=== PATIENT | male | born 1975 ===

== ENCOUNTER 2018-04-24 06:56 | Inpatient (IN) | payer MEDICAID ==
[2018-04-24 07:03] VITALS: O2SAT 100
--- NOTE | 2018-04-24 07:31 | C.PDOC ---
History Of Present Illness 42 year old male presents to the emergency department with complaints of depression and suicidal thoughts for the past three days. He admits to using heroin and cocaine, but states that he has no thoughts of harming anyone nor is he hearing voices. Time Seen by Provider: 04/24/18 07:12 Chief Complaint (Nursing): Psychiatric Evaluation History Per: Patient History/Exam Limitations: no limitations Onset/Duration Of Symptoms: Days (3) Current Symptoms Are (Timing): Still Present Suicide/Self Injury Attempted (Context): None Modifying Factor(s): Cocaine, Other (heroin) Associated Symptoms: Depression, Suicidal Thoughts. denies: Suicidal Plan, Other (homicidal ideation) Past Medical History Reviewed: Historical Data, Nursing Documentation, Vital Signs Vital Signs: Last Vital Signs Temp 98.3 F 04/24/18 07:00 Pulse 66 04/24/18 07:00 Resp 20 04/24/18 07:00 BP 123/85 04/24/18 07:00 Pulse Ox 100 04/24/18 08:35 - Medical History PMH: Anxiety, Bipolar Disorder, Depression Surgical History: No Surg Hx Family History: States: No Known Family Hx - Social History Hx Alcohol Use: No Hx Substance Use: Yes - Immunization History Hx Tetanus Toxoid Vaccination: Yes Hx Influenza Vaccination: No Hx Pneumococcal Vaccination: No Review Of Systems Except As Marked, All Systems Reviewed And Found Negative. Psych: Positive for: Depression, Suicidal ideation Physical Exam - Physical Exam Appears: Non-toxic, No Acute Distress Skin: Warm, Dry Head: Atraumatic, Normacephalic Eye(s): bilateral: Normal Inspection Nose: Normal Neck: Normal, Supple Chest: Symmetrical Cardiovascular: Rhythm Regular, No Murmur Respiratory: Normal Breath Sounds, No Rales, No Rhonchi, No Wheezing Gastrointestinal/Abdominal: Normal Exam, Soft, No Tenderness, No Guarding, No Rebound Extremity: Normal ROM Neurological/Psych: Oriented x3, Normal Speech, Normal Cognition ED Course And Treatment - Laboratory Results Result Diagrams: 04/24/18 07:27 04/24/18 07:27 O2 Sat by Pulse Oximetry: 100 (RA) Pulse Ox Interpretation: Normal Medical Decision Making Medical Decision Making: Assessment: Depression and Suicidal Ideation Plan: Alcohol Serum CMP Drug Screen Urinalysis 0835 - patient is medically cleared for crisis Disposition Discussed With : Nona Engel Doctor Will See Patient In The: Hospital Counseled Patient/Family Regarding: Studies Performed, Diagnosis - Disposition Disposition: HOSPITALIZED Disposition Time: 08:59 Condition: FAIR Forms: [facility] (Romansh) - Clinical Impression Clinical Impression: Manic bipolar I disorder, Opiate abuse, continuous - Scribe Statement The provider has reviewed the documentation as recorded by the Scribe (Josué Chavez) Provider Attestation: All medical record entries made by the Scribe were at my direction and personally dictated by me. I have reviewed the chart and agree that the record accurately reflects my personal performance of the history, physical exam, medical decision making, and the department course for this patient. I have also personally directed, reviewed, and agree with the discharge instructions and disposition.
[2018-04-24 07:36] LABS: BASO # 0.1 K/uL (0.0-0.2); BASO % 0.9 % (0.0-2.0); EOS % 0.3 % (0.0-4.0); HEMOGLOBIN 10.7 g/dL (12.0-18.0); LYMPH # 1.1 K/uL (1.0-4.3); LYMPH % 13.3 % (20.0-40.0); MEAN CELL VOLUME 91.3 fL (80.0-94.0); MEAN CORPUSCULAR HEMOGLOBIN 31.6 pg (27.0-31.0); MEAN CORPUSCULAR HGB CONC 34.6 g/dL (33.0-37.0); MONO # 0.5 K/uL (0.0-0.8); MONO % 6.5 % (0.0-10.0); NEUT # 6.4 K/uL (1.8-7.0); RBC 3.38 Mil/uL (4.40-5.90); RED CELL DISTRIBUTION WIDTH 14.2 % (11.5-14.5); WHITE BLOOD COUNT 8.1 K/uL (4.8-10.8)
[2018-04-24 07:50] LABS: ALB/GLOB RATIO 1.3 (1.0-2.1); ALBUMIN 3.9 g/dL (3.5-5.0); ALT/SGPT 56 U/L (21-72); AST/SGOT 56 U/L (17-59); BLOOD UREA NITROGEN 12 mg/dL (9-20); GFR NON-AFRICAN AMERICAN > 60
[2018-04-24 08:01] LABS: BENZODIAZEPINES, UR NEGATIVE (NEGATIVE); PHENCYCLIDINE, UR NEGATIVE (NEGATIVE)
[2018-04-24 08:04] LABS: SQUAMOUS EPITHIAL 1 /hpf (0-5); URINE AMORPHOUS SEDIMENT RARE /ul (<OCC); URINE BILIRUBIN NEGATIVE (NEGATIVE); URINE BLOOD NEGATIVE (NEGATIVE); URINE CLARITY Hazy (Clear); URINE COLOR Yellow (YELLOW); URINE GLUCOSE (UA) NORMAL (Normal); URINE LEUKOCYTE ESTERASE NEG Leu/uL (Negative); URINE PROTEIN NEGATIVE (NEGATIVE)
[2018-04-24 08:28] LABS: BARBITURATES, UR POSITIVE (NEGATIVE); OPIATES, UR POSITIVE (NEGATIVE)
[2018-04-24] MEDS ORDERED: Aluminum Hydroxide/Magnesium Hydroxide Susp (30 mL) PO PRN (10:01)
--- NOTE | 2018-04-24 10:12 | PCM.PSYCH ---
Initial Psychiatric Evaluation - Initial Psychiatric Evaluation Type of Admission: Voluntary Legal Status: Capacity Chief Complaint (in patient's own words): "I want to kill myself" History of Present Illness and Precipitating Events: Mr. Joshi is a 42-year-old male who is homeless and split from his . Patient brought in by ambulance to ER earlier because of symptoms of depression and wanting to kill himself. Patient injected himself with 12 bags of heroin and 30 dollars worth of cocaine yesterday in an attempt to kill himself. pt has a hx of 3 suicide attempts since the age of 38. pt has been shooting up cocain and heroin for the past 20 years. He describes his symptoms as a cycle of one week of depressed mood followed by one day of insomnia and burst of energy. Past Psych: He had gone to a psychiatrist 4 years ago and was diagnosed with Bipolar disorder, depression, and anxiety. He was given medication but cannot remember the name. states he did feel better while on the medication. pt stopped taking his medication soon after. pt smokes 1/2 PPD, denies marijuana or other drug use Family Hx: Father has a hx of bipolar disorder Past Medical Hx: Bipolar disorder, anxiety, depression Current Medications: Active Medications Generic Name Dose Route Start Last Admin Trade Name Freq PRN Reason Stop Dose Admin Al Hydrox/Mg Hydrox/Simethicone 30 ml 04/24/18 10:01 Maalox 30 Ml PO TID PRN Indigestion / Heartburn Clonidine HCl 0.1 mg 04/24/18 10:01 Catapres PO Q8 PRN COWS Score More or Equal to 5 Hydroxyzine HCl 25 mg 04/24/18 10:06 Atarax PO Q6 PRN Agitation Loperamide HCl 2 mg 04/24/18 10:01 Imodium PO Q8 PRN Diarrhea Methadone HCl 20 mg 04/24/18 10:01 Methadone PO 04/24/18 10:02 ONCE ONE Ondansetron HCl 4 mg 04/24/18 10:01 Zofran Tab PO Q8 PRN Nausea/Vomiting Pseudoephedrine HCl 60 mg 04/24/18 10:01 Sudafed Tab PO QID PRN Nasal/Sinus Congestion Trazodone HCl 50 mg 04/24/18 22:00 Desyrel PO HS LE Past Psychiatric History - Past Psychiatric History Previous Treatment History: Inpatient Pertinent Medical Hx (Current Medical&Sleep Prob, Allergies): Allergies Allergy/AdvReac Type Severity Reaction Status Date / Time FISH Allergy Verified 04/24/18 07:04 lactose Allergy Verified 04/24/18 07:04 No Known Home Med 04/24/18 Review of Systems - Review of Systems All systems: reviewed and no additional remarkable complaints except - Psychiatric Psychiatric: Anxiety, Irritability, Mood Swings, Suicidal Ideation Mental Status Examination - Personal Presentation Personal Presentation: Looks stated age - Affect Affect: Constricted, Depressed - Motor Activity Motor Activity: Calm - Reliability in Providing Information Reliability in Providing Information: Fair - Speech Speech: Organized - Mood Mood: Depressed, Anxious - Formal Thought Process Formal Thought Process: No Impairment - Obsessions/Compulsions Obsessions: No Compulsions: No - Cognitive Functions Orientation: Person, Place, Situation, Time Sensorium: Alert Attention/Concentration: Attentive Abstract Thinking: E[place] Estimate of Intelligence: Below average Judgement: Imparied, as evidence by: Poor judgement, Imparied, as evidence by: Lack of insight into illness - Risk Risk: Suicidal, Diminished functioning - Strength & Assets Inventory Strength & Assets Inventory: Intelligence - Limitations Limitations: Living alone DSM 5 DX - DSM 5 DSM 5 Diagnosis: Bipolar disorder mixed severe without psychotic features Opoid use disorder severe Opioid withdrawal Nicotine use disorder, moderate - Recommended/Plan of Treatment Treatment Recommendations and Plan of Treatment: Bipolar disorder mixed severe without psychotic features Opoid use disorder severe Opioid withdrawal Nicotine use disorder, moderate CBT for relapse prevention Attend groups and activities Supportive therapy and psychoeducation Trazadone 50mg PO HS Gbapentin 300 mg PO TID Methadone taper Smoking cessation with [place] Nicotine patch if needed As needed medications All risks, benefits and alternatives of the meds discussed, and the pt agreed and understood. [place] for abstinence Refer to rehab or IOP, and self-help groups
--- NOTE | 2018-04-24 11:16 | PCM.BM ---
<Leila Gallowayn - Last Filed: 04/24/18 11:14> Treatment Plan Problems - Problems identified on initial assessmt Polysubstance abuse Date Initiated: 04/24/18 Time Initiated: 11:14 Assessment reference: NA Status: Active Depression Date Initiated: 04/24/18 Time Initiated: 11:14 Assessment reference: NA Status: Active Suicidal ideation Date Initiated: 04/24/18 Time Initiated: 11:15 Assessment reference: NA Status: Monitor Treatment assets and liabiliti Patient Assests: cooperative, ADL independent, physically healthy, negotiates basic needs, cognitively intact Patient Liabilities: financial problems, poor support system, relationship conflicts, substance abuse - Milieu Protocol Maintain good personal hygiene: daily Encourage regular showers, daily Remind patient to perform daily oral care, daily Assist patient to perform ADL's Maintain personal safety: every shift Educate patient to report safety concerns to staff, every shift Monitor environment for contraband/sharps Medication safety: Monitor for expected outcome, potential side effects: every shift, Assess barriers to learning: every shift, Assess readiness for medication education: every shift <Nona Engel - Last Filed: 04/25/18 10:57> - Diagnosis (1) Bipolar disorder Status: Acute Interventions: 04/25/18 10:57 * Assess/adjust medications daily and /or as needed * See patient on an individual basis 7x/week to assess level of manic behaviors and stability * Discuss risks, benefits, side effects and alternatives of medications * (2) Opiate abuse, continuous Status: Acute Interventions: 04/25/18 10:58 * Assess 7x/week regarding severity of withdrawal * Educate regarding risks, benefits, side effects and alternatives of medications * Use Motivational Interviewing for abstinence * Use CBT for relapse prevention * Medication management for withdrawal symptoms * Encourage medication assisted treatment * <Mandie Santos - Last Filed: 04/25/18 12:53> Family Contact Family involvement: Patient does not wish Family/SO involvement Family contact: Patient declines to allow family contact at present - Goals for Treatment Patient goals for treatment: "I want to go to [facility] rehab program." Discharge/Continuing Care - Education Needs Education Needs: Patient Medication, Patient Diagnosis/Disease Process, Patient Coping Skills, Patient Placement options, Patient Community resources - Discharge Discharge Criteria: Free of Suicidal thoughts, Normal sleep pattern, Ability to care for self, No longer exhibiting s/s of withdrawal, Reduction of target symptoms Discharge to:: Substance Abuse Rehab - Treatment Team Participation Discussed with Family/SO: No Was Patient/Family/SO present at Treatment Team Meeting: Yes
--- NOTE | 2018-04-25 10:57 | PCM.PYCHPN ---
Psychiatric Progress Note - Psychiatric Progress Note Patient seen today, length of contact: 15 min Patient Chief Complaint: "I want to kill myself" Problems Identified/Issues Discussed: Patient seen and evaluated, chart reviewed and discussed with the nurse. Pt reports depressed mood, and reports feelings of hopelessness and helplessness. He remained isolated and withdrawn, and confined to his room. Patient reports of withdrawal symptoms including abdominal cramps, anxiety, headaches and sweating. Patient is compliant with medications and denies any side effects. Symptoms are improving but pt needs more time to stabilize. Support and psychoeducation given. Medication Change: Yes Medical Record Reviewed: Yes Mental Status Examination - Cognitive Function Orientation: Person, Place, Situation, Time Memory: Intact Attention: WNL Concentration: Poor Association: WNL Fund of Knowledge: Poor - Mood Mood: Depressed, Anxious - Affect Affect: Constricted, Depressed - Speech Speech: Soft - Formal Thought Process Formal Thought Process: No Impairment - Suicidal Ideation Suicidal Ideation: No - Homicidal Ideation Homicidal Ideation: No Goal/Treatment Plan - Goal/Treatment Plan Need for Continued Stay: Severe depression anxiety, Severe functional impairment Progress Toward Problem(s) and Goals/Treatment Plan: Bipolar disorder mixed severe without psychotic features Opoid use disorder severe Opioid withdrawal Nicotine use disorder, moderate CBT for relapse prevention Attend groups and activities Supportive therapy and psychoeducation Trazadone 50mg PO HS Gbapentin 300 mg PO TID Methadone taper Smoking cessation with [place] Nicotine patch if needed As needed medications All risks, benefits and alternatives of the meds discussed, and the pt agreed and understood. OR for abstinence Refer to rehab or IOP, and self-help groups - Smoking Cessation Smoking Cessation Initiated: No
[2018-04-25] MEDS: Divalproex 250 mg DR Tab PO SCH (18:08)
[2018-04-26] MEDS: Divalproex 250 mg DR Tab PO SCH ×2 (09:42→17:22)
[2018-04-26] MEDS ORDERED: Pneumococcal 23-Valent Vaccine IM ONE (10:00)
--- NOTE | 2018-04-26 11:10 | PCM.PYCHPN ---
Psychiatric Progress Note - Psychiatric Progress Note Patient seen today, length of contact: 15 min Patient Chief Complaint: "I m feeling little better" Problems Identified/Issues Discussed: Patient seen and evaluated, chart reviewed and discussed with the nurse. As per the staff he is compliant with the meds. Pt reports depressed mood, and reports feelings of hopelessness and helplessness. He remained isolated and withdrawn, and confined to his room. Patient reports of withdrawal symptoms including abdominal cramps, anxiety, headaches and sweating. Patient is compliant with medications and denies any side effects. Symptoms are improving but pt needs more time to stabilize. Support and psychoeducation given. Medication Change: Yes Medical Record Reviewed: Yes Mental Status Examination - Cognitive Function Orientation: Person, Place, Situation, Time Memory: Intact Attention: WNL Concentration: Poor Association: WNL Fund of Knowledge: Poor - Mood Mood: Depressed, Anxious - Affect Affect: Constricted, Depressed - Speech Speech: Soft - Formal Thought Process Formal Thought Process: No Impairment - Suicidal Ideation Suicidal Ideation: No - Homicidal Ideation Homicidal Ideation: No Goal/Treatment Plan - Goal/Treatment Plan Need for Continued Stay: Severe depression anxiety, Severe functional impairment Progress Toward Problem(s) and Goals/Treatment Plan: Bipolar disorder mixed severe without psychotic features Opoid use disorder severe Opioid withdrawal Nicotine use disorder, moderate CBT for relapse prevention Attend groups and activities Supportive therapy and psychoeducation Trazadone 50mg PO HS Gbapentin 300 mg PO TID Methadone taper Smoking cessation with [place] Nicotine patch if needed As needed medications All risks, benefits and alternatives of the meds discussed, and the pt agreed and understood. ID for abstinence Refer to rehab or IOP, and self-help groups
[2018-04-27] MEDS: Divalproex 250 mg DR Tab PO SCH ×2 (09:08→17:43)
--- NOTE | 2018-04-28 01:00 | PCM.PYCHPN ---
Psychiatric Progress Note - Psychiatric Progress Note Patient seen today, length of contact: 15 min Patient Chief Complaint: "I m feeling little better" Problems Identified/Issues Discussed: Patient seen and evaluated, chart reviewed and discussed with the nurse. Today pt reports some improvement in his depressed mood, and reports some improvement in the feelings of hopelessness and helplessness. Patient still reports of withdrawal symptoms including anxiety, headaches and sweating. He remained isolated and withdrawn, and confined to his room. Patient is compliant with medications and denies any side effects. Symptoms are improving but pt needs more time to stabilize. Support and psychoeducation given. Medication Change: Yes Medical Record Reviewed: Yes Mental Status Examination - Cognitive Function Orientation: Person, Place, Situation, Time Memory: Intact Attention: WNL Concentration: Poor Association: WNL Fund of Knowledge: Poor - Mood Mood: Depressed, Anxious - Affect Affect: Constricted, Depressed - Speech Speech: Soft - Formal Thought Process Formal Thought Process: No Impairment - Suicidal Ideation Suicidal Ideation: No - Homicidal Ideation Homicidal Ideation: No Goal/Treatment Plan - Goal/Treatment Plan Need for Continued Stay: Severe depression anxiety, Severe functional impairment Progress Toward Problem(s) and Goals/Treatment Plan: Bipolar disorder mixed severe without psychotic features Opoid use disorder severe Opioid withdrawal Nicotine use disorder, moderate CBT for relapse prevention Attend groups and activities Supportive therapy and psychoeducation Trazadone 50mg PO HS Depakote 250 mg PO BID Gbapentin 300 mg PO TID Methadone taper Smoking cessation with [place] Nicotine patch if needed As needed medications All risks, benefits and alternatives of the meds discussed, and the pt agreed and understood. [place] for abstinence Refer to rehab or IOP, and self-help groups - Smoking Cessation Smoking Cessation Initiated: No
[2018-04-28] MEDS: Divalproex 250 mg DR Tab PO SCH ×2 (09:42→17:00)
--- NOTE | 2018-04-28 16:19 | PCM.PYCHPN ---
Psychiatric Progress Note - Psychiatric Progress Note Patient seen today, length of contact: 15 min Patient Chief Complaint: I'm feeling some anxiety. Can I be discharged on Monday. Problems Identified/Issues Discussed: Patient seen, chart reviewed, case discussed with the staff. Issues related to illness and treatment were discussed with the patient and staff. Reported compliant with treatment with no adverse affects. Tolerating treatment very well. Patient reported feeling better with some anxiety. Needs more time for stabilization. Patient was calm and cooperative. Patient was awake alert oriented 3 with good eye contact. Mood reported as good, affect appropriate. Aftercare discussed with the patient. At the time of evaluation, patient was awake alert oriented 3, had no delusions , no auditory or visual hallucinations. Medical Problems: None reported Diagnostic Results: Reviewed DSM 5 Symptoms Update: Some improvement with treatment. Medication Change: No Medical Record Reviewed: Yes Mental Status Examination - Cognitive Function Orientation: Person, Place, Situation, Time Memory: Intact Attention: WNL Concentration: WNL Association: WNL Fund of Knowledge: WN Decription of patient's judgement and insights: Fair - Mood Mood: Anxious - Affect Affect: Other (Appropriate) - Speech Speech: Soft - Formal Thought Process Formal Thought Process: No Impairment - Suicidal Ideation Suicidal Ideation: No - Homicidal Ideation Homicidal Ideation: No Goal/Treatment Plan - Goal/Treatment Plan Need for Continued Stay: Remain at risks for inpatient hospitalization, Discharge may exacerbated symptoms, Severe functional impairment Progress Toward Problem(s) and Goals/Treatment Plan: Patient education. Supportive therapy. CBT for relapse prevention. [place] for abstinence. Continue treatment as before. Patient will go to [facility] for follow-up care after discharge from the hospital. Estimated Date of D/C: 05/02/18 - Smoking Cessation Smoking Cessation Initiated: No
[2018-04-29 07:02] VITALS: BP 107/75; PULSE 62; RESP 20; TEMP 97.8
[2018-04-29] MEDS: Divalproex 250 mg DR Tab PO SCH (09:09)
--- NOTE | 2018-04-29 12:46 | PCM.PYCHDC ---
Mental Status Examination - Mental Status Examination Orientation: Person Discharge Summary - Discharge Note Consultations:: List each consultation separately and include: 1. Reason for request. 2. Findings. 3. Follow-up Summary of Hospital Course include:: 1. Description of specific treatment plan utilized for patients during their course of treatmen. 2. Summarize the time- course for resolution of acute symptoms and/or regressed behaviors. 3. Describe issues identified and worked on during hospitalization. 4. Describe medication utilized. 5. Describe medical problems identified and treated. 6. Reassessment of suicide risk Summary of Hospital Course: He will go to [facility] - Final Diagnosis (DSM 5) Condition upon Discharge: FAIR Disposition: HOME/ ROUTINE
[2018-04-29] MEDS ORDERED: Divalproex 500 mg DR Tab PO SCH (18:00)
== END 2018-04-29 13:00 | disposition home or self-care (01) | DRG 430 ==
LOC: C.ER 06:56 → C.5E 08:58
PROVIDERS: ADMIT Psychiatry & Neurology Psychiatry; ATTEND Psychiatry & Neurology Psychiatry
PROC: HZ52ZZZ Individual Psychotherapy for Substance Abuse Treatment, Cognitive-Behavioral (ICD-10-PCS; principal; 2018-04-24)
PROC: HZ57ZZZ Individual Psychotherapy for Substance Abuse Treatment, Motivational Enhancement (ICD-10-PCS; 2018-04-24)
PROC: HZ46ZZZ Group Counseling for Substance Abuse Treatment, Psychoeducation (ICD-10-PCS; 2018-04-24)
PROC: GZ56ZZZ Individual Psychotherapy, Supportive (ICD-10-PCS; 2018-04-24)
DX: F31.63 Bipolar disorder, current episode mixed, severe, without psychotic features (principal); F14.90 Cocaine use, unspecified, uncomplicated; F11.23 Opioid dependence with withdrawal; F41.9 Anxiety disorder, unspecified; G47.00 Insomnia, unspecified; R45.851 Suicidal ideations; Z59.0 Homelessness; Z72.0 Tobacco use; R51 Headache

== ENCOUNTER 2018-07-13 12:44 | Inpatient (IN) | payer MEDICAID ==
[2018-07-13 13:32] LABS: BASO # 0.1 K/uL (0.0-0.2); BASO % 0.8 % (0.0-2.0); EOS % 0.2 % (0.0-4.0); HEMOGLOBIN 10.8 g/dL (12.0-18.0); LYMPH # 1.7 K/uL (1.0-4.3); MEAN CELL VOLUME 91.9 fL (80.0-94.0); MEAN CORPUSCULAR HEMOGLOBIN 30.7 pg (27.0-31.0); MEAN CORPUSCULAR HGB CONC 33.4 g/dL (33.0-37.0); MEAN PLATELET VOLUME 8.9 fL (7.2-11.7); MONO # 0.3 K/uL (0.0-0.8); MONO % 3.6 % (0.0-10.0); NEUT # 5.9 K/uL (1.8-7.0); NEUT % 74.4 % (50.0-75.0); NRBC % 0.1 % (0.0-2.0); RBC 3.53 Mil/uL (4.40-5.90); RED CELL DISTRIBUTION WIDTH 14.4 % (11.5-14.5)
[2018-07-13 13:44] LABS: ALB/GLOB RATIO 1.2 (1.0-2.1); ALBUMIN 4.2 g/dL (3.5-5.0); ALT/SGPT 44 U/L (21-72); AST/SGOT 51 U/L (17-59); BLOOD UREA NITROGEN 10 mg/dL (9-20); GFR NON-AFRICAN AMERICAN > 60
[2018-07-13 13:48] LABS: ACETAMINOPHEN < 10.0 ug/mL (10.0-30.0); SALICYLATE < 1.0 [, mg/dL 1]
--- NOTE | 2018-07-13 13:56 | C.PDOC ---
History Of Present Illness 42 year old male presents to the ED for psychiatric evaluation. Patient reports feeling depressed, stating he has not taken his medication for one month. Patient reports suicidal ideation with plan to overdose on pills. He denies chandler icidal ideation or substance abuse at this time. Time Seen by Provider: 07/13/18 13:13 Chief Complaint (Nursing): Psychiatric Evaluation History Per: Patient History/Exam Limitations: no limitations Onset/Duration Of Symptoms: Days Current Symptoms Are (Timing): Still Present Suicide/Self Injury Attempted (Context): None Modifying Factor(s): None Associated Symptoms: Depression, Suicidal Thoughts, Suicidal Plan Involuntary Hold By: None Recent travel outside of the [place]: No Additional History Per: Patient Past Medical History Reviewed: Historical Data, Nursing Documentation, Vital Signs Vital Signs: Last Vital Signs Temp 98.1 F 07/13/18 12:51 Pulse 67 07/13/18 12:51 Resp 18 07/13/18 12:51 BP 138/83 07/13/18 12:51 Pulse Ox 100 07/13/18 12:51 - Medical History PMH: Anxiety, Bipolar Disorder, Depression, Fractures Denies: Diabetes, Hepatitis, HIV, HTN, Seizures, Sexually Transmitted Disease Surgical History: No Surg Hx - [facility] GROUP DIANETICIST FOR SUBSTANCE ABUSE TREATMENT, PSYCHOEDUCATION (04/24/18) INDIV PSYCHOTHERAPY FOR SUBSTANCE ABUSE, COGNITIV BEHAVIORAL (04/24/18) INDIV PSYCHOTHERAPY FOR SUBSTANCE ABUSE, MOTIVATION ENHANCE (04/24/18) INDIVIDUAL PSYCHOTHERAPY, SUPPORTIVE (04/24/18) Family History: States: Unknown Family Hx - Social History Hx Alcohol Use: No Hx Substance Use: Yes - Immunization History Hx Tetanus Toxoid Vaccination: Yes Hx Influenza Vaccination: No Hx Pneumococcal Vaccination: No Review Of Systems Psych: Positive for: Depression, Suicidal ideation (with plan ) Physical Exam - Physical Exam Appears: Non-toxic, No Acute Distress Skin: Normal Color, Warm, Dry Head: Atraumatic, Normacephalic Eye(s): bilateral: Normal Inspection Oral Mucosa: Moist Neck: Supple Chest: Symmetrical, No Deformity Cardiovascular: Rhythm Regular Respiratory: No Accessory Muscle Use Extremity: Normal ROM Neurological/Psych: Oriented x3, Normal Speech, Normal Cognition ED Course And Treatment - Laboratory Results Result Diagrams: 07/13/18 13:26 07/13/18 13:26 O2 Sat by Pulse Oximetry: 100 (on RA) Pulse Ox Interpretation: Normal Medical Decision Making Medical Decision Making: Progress: Bloodwork and urinalysis ordered and reviewed. Patient placed on 1:1 observation. 1613 Patient is medically clear for admission. Disposition - Disposition Disposition: HOSPITALIZED Disposition Time: 16:40 Condition: STABLE - Clinical Impression Clinical Impression: Depression - Scribe Statement The provider has reviewed the documentation as recorded by the Scribe (Milena Martinez) Provider Attestation: All medical record entries made by the Scribe were at my direction and personally dictated by me. I have reviewed the chart and agree that the record accurately reflects my personal performance of the history, physical exam, medical decision making, and the department course for this patient. I have also personally directed, reviewed, and agree with the discharge instructions and disposition. Decision To Admit - Pt Status Changed To: Hospital Disposition Of: Inpatient - Admit Certification Admit to Inpatient:: After my assessment, the patient will require hospitalization for at least two midnights. This is because of the severity of symptoms shown, intensity of services needed, and/or the medical risk in this patient being treated as an outpatient. - InPatient: Physician Admission Certification: I certify that this patient requires 2 or more midnights of care for the following reason:: si needs inpt - . Bed Request Type: Psychiatry Admitting Physician: Yobany Mao Patient Diagnosis: Depression
[2018-07-13 15:02] LABS: SQUAMOUS EPITHIAL < 1 /hpf (0-5); URINE BILIRUBIN NEGATIVE (NEGATIVE); URINE BLOOD NEGATIVE (NEGATIVE); URINE CLARITY Clear (Clear); URINE COLOR Yellow (YELLOW); URINE GLUCOSE (UA) NORMAL (Normal); URINE LEUKOCYTE ESTERASE NEG Leu/uL (Negative); URINE PROTEIN NEGATIVE (NEGATIVE)
[2018-07-13 15:34] LABS: BARBITURATES, UR NEGATIVE (NEGATIVE); BENZODIAZEPINES, UR NEGATIVE (NEGATIVE); PHENCYCLIDINE, UR NEGATIVE (NEGATIVE)
[2018-07-13 15:36] LABS: OPIATES, UR POSITIVE (NEGATIVE)
[2018-07-13] MEDS ORDERED: Aluminum Hydroxide/Magnesium Hydroxide Susp (30 mL) PO PRN (17:27)
--- NOTE | 2018-07-13 17:52 | PCM.BM ---
<Areli Crawford - Last Filed: 07/13/18 17:49> Treatment Plan Problems - Problems identified on initial assessmt Substance Abuse Date Initiated: 07/13/18 Time Initiated: 17:50 Assessment reference: NA Status: Active (Herion, Cocaine, THC) Poor Family Support Date Initiated: 07/13/18 Time Initiated: 17:51 Assessment reference: NA Status: Active Treatment assets and liabiliti Patient Assests: cooperative, ADL independent, physically healthy, negotiates basic needs, cognitively intact Patient Liabilities: live alone, substance abuse (Heroin, Cocaine, THC) - Milieu Protocol Maintain good personal hygiene: daily Encourage regular showers, daily Remind patient to perform daily oral care, daily Assist patient to perform ADL's Conduct patient checks and document Observation sheet: Q15 minutes Maintain personal safety: every shift Educate patient to report safety concerns to staff, every shift Monitor environment for contraband/sharps Medication safety: Monitor for expected outcome, potential side effects: every shift, Assess barriers to learning: every shift, Assess readiness for medication education: every shift <Mandie Santos - Last Filed: 07/16/18 14:59> Family Contact Family involvement: Patient does not wish Family/SO involvement Family contact: Patient declines to allow family contact at present - Goals for Treatment Patient goals for treatment: "I [facility] rehab or [facility] rehab." Discharge/Continuing Care - Education Needs Education Needs: Patient Medication, Patient Diagnosis/Disease Process, Patient Coping Skills, Patient Placement options, Patient Community resources - Discharge Discharge Criteria: Free of Suicidal thoughts, Normal sleep pattern, Ability to care for self, No longer exhibiting s/s of withdrawal, Reduction of target symptoms Discharge to:: Substance Abuse Rehab - Treatment Team Participation Discussed with Family/SO: No Was Patient/Family/SO present at Treatment Team Meeting: Yes
[2018-07-13 18:09] VITALS: O2SAT 100
[2018-07-14 08:51] VITALS: RESP 20
--- NOTE | 2018-07-14 13:05 | PCM.PSYCH ---
Initial Psychiatric Evaluation - Initial Psychiatric Evaluation Type of Admission: Voluntary Legal Status: Capacity Chief Complaint (in patient's own words): "I am depressed, suicidal" History of Present Illness and Precipitating Events: The pt is seen, chart reviewed and case discussed. He is a 42 y/o LM, w 4 children, unemployed. Lives in a group home in [place]. He says he was kicked out of [facility] recently after 1 day b/c he got into an argument with a director. He was on methadone 65 mg (last dose was confirmed as that but 2 days ago) and now he wants to come off and move out. Risks of doing that discussed, especially coming from a relatively high dose. He said he did it before and he should be OK. Of note, he is also using cocaine and MJ. Denies alcohol and xanax, and others Re psych sxs, he feels depressed, suicidal, paranoid but not homicidal and no hallucinations. He contracts for safety and will follow his safety plan. Family Hx: Father has a hx of bipolar disorder Past Medical Hx: Denies Current Medications: Active Medications Generic Name Dose Route Start Last Admin Trade Name Freq PRN Reason Stop Dose Admin Al Hydrox/Mg Hydrox/Simethicone 30 ml 07/13/18 17:27 Maalox 30 Ml PO TID PRN Indigestion / Heartburn Clonidine HCl 0.1 mg 07/13/18 17:27 Catapres PO Q4 PRN COWS Score More or Equal to 5 Hydroxyzine HCl 50 mg 07/13/18 17:27 Atarax PO Q6H PRN Anxiety Ibuprofen 600 mg 07/13/18 17:27 Motrin Tab PO Q6H PRN Pain, moderate (4-7) Loperamide HCl 2 mg 07/13/18 17:27 Imodium PO Q8 PRN Diarrhea Mirtazapine 15 mg 07/14/18 22:00 Remeron PO HS LE Ondansetron HCl 4 mg 07/13/18 17:27 18 21:33 Zofran Tab PO 4 mg Q8 PRN Administration Nausea/Vomiting Trazodone HCl 100 mg 07/13/18 17:27 Desyrel PO HS PRN Insomnia Past Psychiatric History - Past Psychiatric History Pertinent Medical Hx (Current Medical&Sleep Prob, Allergies): Allergies Allergy/AdvReac Type Severity Reaction Status Date / Time FISH Allergy Verified 04/24/18 07:04 lactose Allergy Verified 04/24/18 07:04 Divalproex [Depakote DR] 500 mg PO BID #60 tcp 04/29/18 Gabapentin [Neurontin] 300 mg PO TID #90 cap 04/29/18 traZODone [Desyrel] 100 mg PO HS #30 tab 04/29/18 Review of Systems - Psychiatric Psychiatric: Abnormal Sleep Pattern, Anhedonia, Anxiety, Change in Appetite, Depression, Difficulty Concentrating, Irritability, Paranoia, Suicidal Ideation. absent: Hallucinations, Homicidal Ideation Mental Status Examination - Personal Presentation Personal Presentation: Looks stated age - Affect Affect: Constricted - Motor Activity Motor Activity: Calm - Reliability in Providing Information Reliability in Providing Information: Good - Speech Speech: Organized - Mood Mood: Depressed, Anxious - Formal Thought Process Formal Thought Process: No Impairment - Cognitive Functions Orientation: Person, Place, Situation, Time Sensorium: Alert Attention/Concentration: Easily distracted Abstract Thinking: Adkins Estimate of Intelligence: Average Judgement: Intact, as evidence by: Insight regarding need for hospitalization Memory: Recent intact, as evidence by: Ability to recall events of the day, Remote intact, as evidenced by: Abilit to recall sig. life events - Risk Risk: Withdrawal, Diminished functioning - Strength & Assets Inventory Strength & Assets Inventory: Cooperative - Limitations Limitations: Living alone, Other DSM 5 DX - DSM 5 DSM 5 Diagnosis: Major depressive d/o - recurrent, severe Opioid withdrawal opioid use d/o - severe Cocaine use d/o - severe cannabis use d/o - severe - Recommended/Plan of Treatment Treatment Recommendations and Plan of Treatment: Taper with methadone He understood that it will be faster than what outpatient methadone clinics would do. He also understood the risks associated with it, incl but not limited to withdrawal symptoms. Remeron for depression Gabapentin for augmentation if needed As needed medications All risks, benefits and alternatives of the meds discussed, and the pt agreed and understood. Attend groups and activities Supportive therapy and psychoeducation MN for abstinence CBT for relapse prevention Encourage MAT Refer to rehab or IOP, and self-help groups Teach healthy lifestyle methods, i.e. diet, exercise, meditation Smoking cessation with MN Nicotine patch if needed 34 min Projected ELOS: 7 days Prognosis: good w treatemnt - Smoking Cessation Smoking Cessation Initiated: Yes
[2018-07-15] MEDS ORDERED: Bisacodyl 5mg EC Tab PO SCH (15:00)
[2018-07-15] MEDS ORDERED: Magnesium Hydroxide Susp 30 ml UD PO ONE (20:54)
--- NOTE | 2018-07-15 23:40 | PCM.PYCHPN ---
Psychiatric Progress Note - Psychiatric Progress Note Patient seen today, length of contact: 15 minutes Patient Chief Complaint: I am feeling restless in my legs most of the times especially at night. Problems Identified/Issues Discussed: Patient seen, chart reviewed, case discussed with the staff. Issues related to illness and treatment were discussed with the patient and staff. Reported compliant with treatment with no adverse effects. Tolerating treatment very well. Awake, alert and oriented x 3. Patient reported feeling better with some restless in his legs especially at night, relieved with leg movements. Calm and cooperative with good eye contact. Mood reported as depressed. Affect appropriate. Treatment discussed with the patient. Needs more time for stabilization. Aftercare discussed with the patient. Denied any delusions, auditory or visual hallucinations, suicidal ideations or homicidal ideations at the time of evaluation. Medical Problems: None reported Diagnostic Results: Reviewed DSM 5 Symptoms Update: Some improvement with treatment Medication Change: No Medical Record Reviewed: Yes Mental Status Examination - Cognitive Function Orientation: Person, Place, Situation, Time Memory: Intact Attention: WNL Concentration: WNL Association: WN Fund of Knowledge: [facility] Decription of patient's judgement and insights: Fair - Mood Mood: Depressed (Less than before) - Affect Affect: Other (Appropriate) - Speech Speech: Appropriate - Formal Thought Process Formal Thought Process: No Impairment Psychotic Thoughts and Behaviors: None - Suicidal Ideation Suicidal Ideation: No - Homicidal Ideation Homicidal Ideation: No Goal/Treatment Plan - Goal/Treatment Plan Need for Continued Stay: Remain at risks for inpatient hospitalization, Discharge may exacerbated symptoms, Severe functional impairment Progress Toward Problem(s) and Goals/Treatment Plan: Some improvement with treatment. Patient education. Supportive therapy. Patient appeared anemic as his hemoglobin, RBC and hematocrit are low. Patient may have restless leg syndrome because of apparent deficiency. We'll start Hydrin supplement. Discussed this issue with patient. Patient understood and agreed. We'll start ferrous sulfate 1 tablet daily. Continue rest of the treatment as before. Patient wants to go to [facility] for follow-up care after discharge from the [facility]. Estimated Date of D/C: 07/18/18 - Smoking Cessation Smoking Cessation Initiated: No Reason for not providing: Patient does not smoke cigarettes.
[2018-07-16] MEDS ORDERED: Bisacodyl 5mg EC Tab PO ONE (21:06)
--- NOTE | 2018-07-16 21:22 | PCM.PYCHPN ---
Psychiatric Progress Note - Psychiatric Progress Note Patient seen today, length of contact: 15 minutes Patient Chief Complaint: I still feel constipated. Problems Identified/Issues Discussed: Patient seen, chart reviewed, case discussed with the staff. Issues related to illness and treatment were discussed with the patient and staff. Reported compliant with treatment with no adverse effects. Tolerating treatment very well. Patient reported feeling better except having constipation. Patient is getting treatment for constipation. Awake, alert and oriented x3. Calm and cooperative with good eye contact. Mood reported as less depressed. Affect appropriate. Treatment discussed with the patient. Needs more time for stabilization. Aftercare discussed with the patient. Denied any delusions, auditory or visual hallucinations, suicidal ideations or homicidal ideations at the time of evaluation. Medical Problems: None reported Diagnostic Results: Reviewed DSM 5 Symptoms Update: Some improvement with treatment Medication Change: No Medical Record Reviewed: Yes Mental Status Examination - Cognitive Function Orientation: Person, Place, Situation, Time Memory: Intact Attention: WNL Concentration: WNL Association: WNL Fund of Knowledge: WN Decription of patient's judgement and insights: Fair - Mood Mood: Depressed (Less than before) - Affect Affect: Other (Appropriate) - Speech Speech: Appropriate - Formal Thought Process Formal Thought Process: No Impairment Psychotic Thoughts and Behaviors: None reported - Suicidal Ideation Suicidal Ideation: No - Homicidal Ideation Homicidal Ideation: No Goal/Treatment Plan - Goal/Treatment Plan Need for Continued Stay: Remain at risks for inpatient hospitalization, Discharge may exacerbated symptoms, Severe functional impairment Progress Toward Problem(s) and Goals/Treatment Plan: Some improvement with treatment. Patient/staff education. Supportive therapy. Continue treatment as before. Patient wants to go to [facility] for continuity of treatment after discharge from the hospital for follow-up care. Estimated Date of D/C: 07/18/18 - Smoking Cessation Smoking Cessation Initiated: No
[2018-07-17 08:22] VITALS: TEMP 98.2
[2018-07-17 16:17] VITALS: BP 112/72; PULSE 74
--- NOTE | 2018-07-17 17:37 | PCM.PYCHPN ---
Psychiatric Progress Note - Psychiatric Progress Note Patient seen today, length of contact: 15 minutes Patient Chief Complaint: I am still feeling constipated. Problems Identified/Issues Discussed: Patient seen, chart reviewed, case discussed with the staff. Issues related to illness and treatment were discussed with the patient and staff. Reported compliant with treatment with no adverse effects. Tolerating treatment very well. Patient reported feeling better except having constipation. We will start Colace. Patient agreed. Awake, alert and oriented x3. Calm and cooperative with good eye contact. Mood reported as less depressed. Affect appropriate. Treatment discussed with the patient. Needs more time for stabilization. Aftercare discussed with the patient. Denied any delusions, auditory or visual hallucinations, suicidal ideations or homicidal ideations at the time of evaluation. Medical Problems: None reported Diagnostic Results: Reviewed DSM 5 Symptoms Update: Improving with treatment. Medication Change: Yes (Colace) Medical Record Reviewed: Yes Mental Status Examination - Cognitive Function Orientation: Person, Place, Situation, Time Memory: Intact Attention: WNL Concentration: WNL Association: WNL Fund of Knowledge: [facility] Decription of patient's judgement and insights: Fair - Mood Mood: Depressed (Less than before) - Affect Affect: Other (Appropriate) - Speech Speech: Appropriate - Formal Thought Process Formal Thought Process: No Impairment Psychotic Thoughts and Behaviors: None reported - Suicidal Ideation Suicidal Ideation: No - Homicidal Ideation Homicidal Ideation: No Goal/Treatment Plan - Goal/Treatment Plan Need for Continued Stay: Remain at risks for inpatient hospitalization, Discharge may exacerbated symptoms, Severe functional impairment Progress Toward Problem(s) and Goals/Treatment Plan: Some improvement with treatment. Patient/staff education. Supportive therapy. We will start Colace for constipation. Continue rest of the treatment as before. Patient wants to go to [facility] for continuity of treatment after discharge from the hospital for follow-up care. Estimated Date of D/C: 07/18/18 - Smoking Cessation Smoking Cessation Initiated: No
--- NOTE | 2018-07-18 16:57 | PCM.PYCHDC ---
Mental Status Examination - Mental Status Examination Orientation: Person, Place, Situation, Time Description of patient's judgement and insight: Fair Psychotic Thoughts and Behaviors: None reported Discharge Summary - Discharge Note Consultations:: List each consultation separately and include: 1. Reason for request. 2. Findings. 3. Follow-up Summary of Hospital Course include:: 1. Description of specific treatment plan utilized for patients during their course of treatmen. 2. Summarize the time- course for resolution of acute symptoms and/or regressed behaviors. 3. Describe issues identified and worked on during hospitalization. 4. Describe medication utilized. 5. Describe medical problems identified and treated. 6. Reassessment of suicide risk - Final Diagnosis (DSM 5) Condition upon Discharge: STABLE Disposition: HOME/ ROUTINE Follow-up Treatment Plan: Some improvement with treatment. Patient/staff education. Supportive therapy. We will start Colace for constipation. Continue rest of the treatment as before. Patient wants to go to [facility] for continuity of treatment after discharge from the hospital for follow-up care. Prescriptions/Medication Reconciliation: Ferrous Sulfate [Feosol] 325 mg PO DAILY #30 tab Mirtazapine [Remeron] 30 mg PO HS #30 tab traZODone [Desyrel] 100 mg PO HS PRN #30 tab PRN Reason: Insomnia
== END 2018-07-18 12:15 | disposition home or self-care (01) | DRG 744 ==
LOC: C.ER 12:44 → C.9E 16:12 → C.5E 16:21
PROVIDERS: ADMIT Psychiatry & Neurology Psychiatry; ATTEND Psychiatry & Neurology Psychiatry
DX: F11.23 Opioid dependence with withdrawal (principal); F33.2 Major depressive disorder, recurrent severe without psychotic features; F14.20 Cocaine dependence, uncomplicated; R45.851 Suicidal ideations; K59.00 Constipation, unspecified; D64.9 Anemia, unspecified; F12.20 Cannabis dependence, uncomplicated

== ENCOUNTER 2018-08-12 19:37 | Inpatient (IN) | payer MEDICAID ==
--- NOTE | 2018-08-12 20:42 | C.PDOC ---
History Of Present Illness 42 year old male with PMHx of depression, bipolar disorder, substance abuse presents to the ED for evaluation of feeling depressed. Patient reports he wanted to kill himself yesterday by overdosing with a fentanyl injection. Patient denies HI, hallucinations, CP, SOB, injury, fall, trauma. Time Seen by Provider: 08/12/18 20:04 Chief Complaint (Nursing): Psychiatric Evaluation History Per: Patient History/Exam Limitations: no limitations Onset/Duration Of Symptoms: Days Current Symptoms Are (Timing): Still Present Suicide/Self Injury Attempted (Context): Other (overdose) Modifying Factor(s): Other Associated Symptoms: Depression, Suicidal Thoughts, Suicidal Plan Recent travel outside of the [place]: No Additional History Per: Patient Past Medical History Reviewed: Historical Data, Nursing Documentation, Vital Signs Vital Signs: Last Vital Signs Temp 99.0 F 08/12/18 20:03 Pulse 88 08/12/18 20:03 Resp BP 132/83 08/12/18 20:03 Pulse Ox 96 08/12/18 20:03 - Medical History PMH: Anxiety, Bipolar Disorder, Depression, Fractures Denies: Diabetes, Hepatitis, HIV, HTN, Chronic Kidney Disease, Seizures, Sexually Transmitted Disease Surgical History: No Surg Hx - [facility] Procedures GROUP P[facility] FOR SUBSTANCE ABUSE TREATMENT, PSYCHOEDUCATION (04/24/18) INDIV PSYCHOTHERAPY FOR SUBSTANCE ABUSE, COGNITIV BEHAVIORAL (04/24/18) INDIV PSYCHOTHERAPY FOR SUBSTANCE ABUSE, MOTIVATION ENHANCE (04/24/18) INDIVIDUAL PSYCHOTHERAPY, SUPPORTIVE (04/24/18) Family History: States: Unknown Family Hx - Social History Hx Alcohol Use: No Hx Substance Use: Yes - Immunization History Hx Tetanus Toxoid Vaccination: Yes Hx Influenza Vaccination: No Hx Pneumococcal Vaccination: No Review Of Systems Constitutional: Negative for: Fever, Chills Cardiovascular: Negative for: Chest Pain Respiratory: Negative for: Shortness of Breath Gastrointestinal: Negative for: Nausea, Vomiting, Abdominal Pain Skin: Negative for: Rash Psych: Positive for: Depression, Suicidal ideation Physical Exam - Physical Exam Appears: Non-toxic, No Acute Distress Skin: Normal Color, Warm, Dry Head: Atraumatic, Normacephalic Eye(s): bilateral: Normal Inspection Oral Mucosa: Moist Neck: Normal ROM, Supple Chest: Symmetrical Cardiovascular: Rhythm Regular Respiratory: Normal Breath Sounds, No Rales, No Rhonchi, No Wheezing Gastrointestinal/Abdominal: Soft, No Tenderness, No Guarding, No Rebound Extremity: Normal ROM, No Tenderness, No Swelling Neurological/Psych: Oriented x3, Normal Speech, Normal Cognition Gait: Steady ED Course And Treatment - Laboratory Results Result Diagrams: 08/12/18 20:39 08/12/18 20:39 Lab Interpretation: No Acute Changes O2 Sat by Pulse Oximetry: 96 (ON RA) Pulse Ox Interpretation: Normal Progress Note: Patient is medically cleared for psychiatric admission for depression. Medical Decision Making Medical Decision Making: Plan: * Labs * Crisis * UA Disposition - Disposition Disposition: HOSPITALIZED Disposition Time: 22:16 Condition: STABLE - POA Present On Arrival: None - Clinical Impression Clinical Impression: Depression, Suicidal ideation - Scribe Statement The provider has reviewed the documentation as recorded by the Scribe Michael León All medical record entries made by the Scribe were at my direction and personally dictated by me. I have reviewed the chart and agree that the record accurately reflects my personal performance of the history, physical exam, me dical decision making, and the department course for this patient. I have also personally directed, reviewed, and agree with the discharge instructions and disposition. Decision To Admit - Pt Status Changed To: Hospital Disposition Of: Inpatient - Admit Certification Admit to Inpatient:: After my assessment, the patient will require hospitalization for at least two midnights. This is because of the severity of symptoms shown, intensity of services needed, and/or the medical risk in this patient being treated as an outpatient. - InPatient: Physician Admission Certification: I certify that this patient requires 2 or more midnights of care for the following reason:: severe depression with suicidal ideation - . Bed Request Type: Psychiatry Patient Diagnosis: Depression
[2018-08-12 20:46] LABS: BASO # 0.1 K/uL (0.0-0.2); BASO % 0.7 % (0.0-2.0); EOS # 0.1 K/uL (0.0-0.7); EOS % 0.8 % (0.0-4.0); HEMOGLOBIN 11.4 g/dL (12.0-18.0); LYMPH # 1.5 K/uL (1.0-4.3); LYMPH % 20.1 % (20.0-40.0); MEAN CELL VOLUME 93.2 fL (80.0-94.0); MEAN CORPUSCULAR HEMOGLOBIN 31.2 pg (27.0-31.0); MEAN CORPUSCULAR HGB CONC 33.5 g/dL (33.0-37.0); MONO # 0.4 K/uL (0.0-0.8); MONO % 5.6 % (0.0-10.0); NEUT # 5.4 K/uL (1.8-7.0); NEUT % 72.8 % (50.0-75.0); NRBC % 0.1 % (0.0-2.0); RBC 3.66 Mil/uL (4.40-5.90); RED CELL DISTRIBUTION WIDTH 14.9 % (11.5-14.5); URINE BILIRUBIN NEGATIVE (NEGATIVE); URINE BLOOD 1+ (NEGATIVE); URINE CLARITY Clear (Clear); URINE COLOR Colorless (YELLOW); URINE GLUCOSE (UA) NORMAL (Normal); URINE LEUKOCYTE ESTERASE NEG Leu/uL (Negative); URINE PROTEIN NEGATIVE (NEGATIVE); URINE UROBILINOGEN NORMAL mg/dL (0.2-1.0); WHITE BLOOD COUNT 7.4 K/uL (4.8-10.8)
[2018-08-12 21:00] LABS: BARBITURATES, UR NEGATIVE (NEGATIVE); BENZODIAZEPINES, UR NEGATIVE (NEGATIVE); PHENCYCLIDINE, UR NEGATIVE (NEGATIVE)
[2018-08-12 21:12] LABS: ALB/GLOB RATIO 1.2 (1.0-2.1); ALBUMIN 4.1 g/dL (3.5-5.0); ALT/SGPT 75 U/L (21-72); AST/SGOT 69 U/L (17-59); BLOOD UREA NITROGEN 12 mg/dL (9-20); GFR NON-AFRICAN AMERICAN > 60; OPIATES, UR POSITIVE (NEGATIVE)
--- NOTE | 2018-08-13 00:20 | PCM.BM ---
<Dixon Potts - Last Filed: 08/13/18 00:18> Treatment Plan Problems - Problems identified on initial assessmt MAJOR DEPRESSION Date Initiated: 08/12/18 Time Initiated: 23:05 Assessment reference: NA Status: Active SUBSTANCE ABUSE Date Initiated: 08/12/18 Time Initiated: 23:05 Assessment reference: NA Status: Active Treatment assets and liabiliti Patient Assests: cooperative, self-reliant, ADL independent, negotiates basic needs, cognitively intact Patient Liabilities: physical pain, financial problems, relationship conflicts, substance abuse, legal issue - Milieu Protocol Maintain good personal hygiene: daily Encourage regular showers, daily Remind patient to perform daily oral care, daily Assist patient to perform ADL's Maintain personal safety: every shift Educate patient to report safety concerns to staff, every shift Monitor environment for contraband/sharps Medication safety: Monitor for expected outcome, potential side effects: every shift, Assess barriers to learning: every shift, Assess readiness for medication education: every shift <Nona Engel - Last Filed: 08/13/18 11:06> - Diagnosis (1) Bipolar affect, depressed Status: Acute Interventions: 08/13/18 11:06 * Assess/adjust medications daily and /or as needed * See patient on an individual basis 7x/week to assess level of manic behaviors and stability * Discuss risks, benefits, side effects and alternatives of medications * (2) Opiate abuse, continuous Status: Acute Interventions: 08/13/18 11:06 * Assess 7x/week regarding severity of withdrawal * Educate regarding risks, benefits, side effects and alternatives of medications * Use Motivational Interviewing for abstinence * Use CBT for relapse prevention * Medication management for withdrawal symptoms * Encourage medication assisted treatment * <Mandie Santos - Last Filed: 08/13/18 15:18> Family Contact Family involvement: Patient does not wish Family/SO involvement Family contact: Patient declines to allow family contact at present - Goals for Treatment Patient goals for treatment: "I want to go to a rehab program." Discharge/Continuing Care - Education Needs Education Needs: Patient Medication, Patient Diagnosis/Disease Process, Patient Coping Skills, Patient Placement options, Patient Community resources - Discharge Discharge Criteria: Free of Suicidal thoughts, Normal sleep pattern, Ability to care for self, No longer exhibiting s/s of withdrawal, Reduction of target symptoms Discharge to:: Substance Abuse Rehab - Treatment Team Participation Discussed with Family/SO: No Was Patient/Family/SO present at Treatment Team Meeting: Yes
--- NOTE | 2018-08-13 09:49 | PCM.PSYCH ---
Initial Psychiatric Evaluation - Initial Psychiatric Evaluation Type of Admission: Voluntary Legal Status: Capacity Chief Complaint (in patient's own words): I was feeling depressed.' History of Present Illness and Precipitating Events: This is a 42 y.o. HM, who is currently living alone came to the ED with depressed mood and suicidal ideation with plan to overdose. Patient is known to this unit due to Major Depressive Recurrent and Substance Abuse. He has history of few inpatient psychiatric hospitalizations, he was just discharged from [facility] in June 2018. As per the patient he went to a rehab facility in [place] for 3 weeks. However he relapsed on drugs soon after discharge from the rehab and started abusing increasing amount of heroin and cocaine pain. He reports of injecting 8-10 bags of heroin along with 1-2 bags of cocaine. He reports withdrawal symptoms from heroin including nausea, vomiting, diarrhea, abdominal cramps and joint pains. He also reports depressed mood, feelings of hopelessness and helplessness poor sleep and poor appetite. He reports at times irritability and agitation but denies any manic symptoms. He reports a few suicidal attempts in the like overdose on meds x2 and also s hoot himself once with his 43 narcisa but did not elaborate further what was the outcome. Patient is from his due to chaotic relationship. He denies any auditory or visual hallucinations or any paranoia. Past medical history None reported Current Medications: Active Medications Generic Name Dose Route Start Last Admin Trade Name Freq PRN Reason Stop Dose Admin Hydroxyzine HCl 25 mg 08/13/18 00:23 Atarax PO Q6 PRN Anxiety Influenza Virus Vaccine 60 mcg 08/14/18 10:00 Fluzone Quad [id number] IM 08/14/18 10:01 .ONCE ONE Pneumococcal Polyvalent Vaccine 0.5 ml 08/15/18 10:00 Pneumovax 23 Vaccine IM 08/15/18 10:01 .ONCE ONE Trazodone HCl 100 mg 08/13/18 00:23 Desyrel PO HS PRN Sleep Past Psychiatric History - Past Psychiatric History Previous Treatment History: Inpatient Pertinent Medical Hx (Current Medical&Sleep Prob, Allergies): Allergies Allergy/AdvReac Type Severity Reaction Status Date / Time FISH Allergy Verified 04/24/18 07:04 lactose Allergy Verified 04/24/18 07:04 Divalproex [Max BARTLETT] 500 mg PO BID #60 tcp 04/29/18 Gabapentin [Neurontin] 300 mg PO TID #90 cap 04/29/18 Ferrous Sulfate [Feosol] 325 mg PO DAILY #30 tab 07/18/18 Mirtazapine [Remeron] 30 mg PO HS #30 tab 07/18/18 traZODone [Desyrel] 100 mg PO HS PRN #30 tab 07/18/18 Review of Systems - Review of Systems All systems: reviewed and no additional remarkable complaints except - Psychiatric Psychiatric: Anxiety, Irritability, Suicidal Ideation. absent: Auditory Hallucinations Mental Status Examination - Personal Presentation Personal Presentation: Looks stated age - Affect Affect: Constricted, Depressed - Motor Activity Motor Activity: Calm - Reliability in Providing Information Reliability in Providing Information: Fair - Speech Speech: Organized - Mood Mood: Depressed, Anxious - Formal Thought Process Formal Thought Process: No Impairment - Obsessions/Compulsions Obsessions: No Compulsions: No - Cognitive Functions Orientation: Person, Place, Situation, Time Sensorium: Alert Attention/Concentration: Attentive Abstract Thinking: [place] Estimate of Intelligence: Below average Judgement: Imparied, as evidence by: Poor judgement, Imparied, as evidence by: Lack of insight into illness - Risk Risk: Suicidal, Withdrawal, Diminished functioning - Limitations Limitations: Living alone DSM 5 DX - DSM 5 DSM 5 Diagnosis: Major depressive disorder recurrent severe without psychotic features Opioid use disorder severe Opioid withdrawal Cocaine use disorder severe - Recommended/Plan of Treatment Treatment Recommendations and Plan of Treatment: Major depressive disorder recurrent severe without psychotic features Opioid use disorder severe Opioid withdrawal Cocaine use disorder severe CBT Psychoeducation Supportive therapy Methadone taper Withdrawal protocol Trazodone 100 mg p.o. nightly Paxil 20 mg p.o. daily Neurontin 100 mg p.o. 3 times daily - Smoking Cessation Smoking Cessation Initiated: No
[2018-08-13] MEDS ORDERED: Aluminum Hydroxide/Magnesium Hydroxide Susp (30 mL) PO PRN (10:28)
[2018-08-14 06:22] VITALS: O2SAT 100
[2018-08-14] MEDS ORDERED: Influenza Vaccine 60 MCG/0.5 ML SYR (3 yr & up) IM ONE (10:00)
--- NOTE | 2018-08-14 10:08 | PCM.PYCHPN ---
Psychiatric Progress Note - Psychiatric Progress Note Patient seen today, length of contact: 15 min Patient Chief Complaint: I was feeling depressed.' Medication Change: Yes Medical Record Reviewed: Yes Mental Status Examination - Cognitive Function Orientation: Person, Place, Situation, Time Memory: Intact Attention: WNL Concentration: Poor Association: WNL Fund of Knowledge: Poor - Mood Mood: Depressed, Anxious - Affect Affect: Constricted, Depressed - Speech Speech: Soft - Formal Thought Process Formal Thought Process: No Impairment - Suicidal Ideation Suicidal Ideation: No - Homicidal Ideation Homicidal Ideation: No Goal/Treatment Plan - Goal/Treatment Plan Need for Continued Stay: Severe functional impairment Progress Toward Problem(s) and Goals/Treatment Plan: Major depressive disorder recurrent severe without psychotic features Opioid use disorder severe Opioid withdrawal Cocaine use disorder severe CBT Psychoeducation Supportive therapy Methadone taper Withdrawal protocol Trazodone 100 mg p.o. nightly Paxil 20 mg p.o. daily Neurontin 100 mg p.o. 3 times daily - Smoking Cessation Smoking Cessation Initiated: No
[2018-08-15] MEDS ORDERED: Pneumococcal 23-Valent Vaccine IM ONE (10:00)
[2018-08-16] MEDS: Amoxicillin-Clav 500-125 mg Tab PO SCH (19:42)
[2018-08-17 06:48] VITALS: BP 114/72; PULSE 84; RESP 18; TEMP 98.1
[2018-08-17] MEDS: Amoxicillin-Clav 500-125 mg Tab PO SCH (08:20)
--- NOTE | 2018-08-17 12:02 | PCM.PYCHDC ---
Mental Status Examination - Mental Status Examination Orientation: Person, Place, Situation, Time Memory: Intact Mood: Neutral Affect: Constricted Speech: Soft Attention: WNL Concentration: WNL Association: WNL Fund of Knowledge: WNL Formal Thought Process: No Impairment Description of patient's judgement and insight: good, fair Psychotic Thoughts and Behaviors: denies any AVH Suicidal Ideation: No Current Homicidal Ideation?: No Discharge Summary - Discharge Note Consultations:: List each consultation separately and include: 1. Reason for request. 2. Findings. 3. Follow-up Summary of Hospital Course include:: 1. Description of specific treatment plan utilized for patients during their course of treatmen. 2. Summarize the time- course for resolution of acute symptoms and/or regressed behaviors. 3. Describe issues identified and worked on during hospitalization. 4. Describe medication utilized. 5. Describe medical problems identified and treated. 6. Reassessment of suicide risk Summary of Hospital Course: This is a 42 y.o. HM, who is currently living alone came to the ED with depressed mood and suicidal ideation with plan to overdose. Patient is known to this unit due to Major Depressive Recurrent and Substance Abuse. He has history of few inpatient psychiatric hospitalizations, he was just discharged from [facility] in June 2018. As per the patient he went to a rehab facility in [place] for 3 weeks. However he relapsed on drugs soon after discharge from the rehab and started abusing increasing amount of heroin and cocaine pain. He reports of injecting 8-10 bags of heroin along with 1-2 bags of cocaine. He reports withdrawal symptoms from heroin including nausea, vomiting, diarrhea, abdominal cramps and joint pains. He also reports depressed mood, feelings of hopelessness and helplessness poor sleep and poor appetite. He reports at times irritability and agitation but denies any manic symptoms. He reports a few suicidal attempts in the like overdose on meds x2 and also shoot himself once with his 43 narcisa but did not elaborate further what was the outcome. Patient is from his due to chaotic relationship. He denies any auditory or visual hallucinations or any paranoia. Past medical history None reported - Diagnosis (1) Bipolar affect, depressed Current Visit: Yes Status: Acute (2) Opiate abuse, continuous Current Visit: No Status: Acute - Final Diagnosis (DSM 5) Condition upon Discharge: STABLE Disposition: HOME/ ROUTINE Follow-up Treatment Plan: Major depressive disorder recurrent severe without psychotic features Opioid use disorder severe Opioid withdrawal Cocaine use disorder severe CBT Psychoeducation Supportive therapy Methadone taper Withdrawal protocol Trazodone 100 mg p.o. nightly Paxil 20 mg p.o. daily Neurontin 100 mg p.o. 3 times daily Prescriptions/Medication Reconciliation: Amoxicillin/Clavulanate [Augmentin 500 MG-125 MG Tab] 1 tab PO Q12H #14 tab Gabapentin [Neurontin] 300 mg PO TID #90 cap PARoxetine [Paxil] 20 mg PO DAILY #30 tab traZODone [Desyrel] 100 mg PO HS PRN #30 tab PRN Reason: Sleep
== END 2018-08-17 13:44 | disposition home or self-care (01) | DRG 430 ==
LOC: C.ER 19:37 → C.9E 22:13 → C.5E 22:40
PROVIDERS: ADMIT Psychiatry & Neurology Psychiatry; ATTEND Psychiatry & Neurology Psychiatry
PROC: GZHZZZZ Group Psychotherapy (ICD-10-PCS; principal; 2018-08-12)
PROC: HZ2ZZZZ Detoxification Services for Substance Abuse Treatment (ICD-10-PCS; 2018-08-12)
PROC: HZ52ZZZ Individual Psychotherapy for Substance Abuse Treatment, Cognitive-Behavioral (ICD-10-PCS; 2018-08-12)
PROC: HZ59ZZZ Individual Psychotherapy for Substance Abuse Treatment, Supportive (ICD-10-PCS; 2018-08-12)
PROC: HZ56ZZZ Individual Psychotherapy for Substance Abuse Treatment, Psychoeducation (ICD-10-PCS; 2018-08-12)
PROC: HZ42ZZZ Group Counseling for Substance Abuse Treatment, Cognitive-Behavioral (ICD-10-PCS; 2018-08-12)
PROC: HZ46ZZZ Group Counseling for Substance Abuse Treatment, Psychoeducation (ICD-10-PCS; 2018-08-12)
PROC: GZ58ZZZ Individual Psychotherapy, Cognitive-Behavioral (ICD-10-PCS; 2018-08-12)
PROC: GZ56ZZZ Individual Psychotherapy, Supportive (ICD-10-PCS; 2018-08-12)
DX: F33.2 Major depressive disorder, recurrent severe without psychotic features (principal); F11.23 Opioid dependence with withdrawal; F14.20 Cocaine dependence, uncomplicated; R45.851 Suicidal ideations; F41.9 Anxiety disorder, unspecified

== ENCOUNTER 2018-10-06 00:37 | Inpatient (IN) | payer MEDICAID ==
--- NOTE | 2018-10-06 00:50 | C.PDOC ---
History Of Present Illness patient presents with major depression, and suicidal ideation, but no specific plan. Time Seen by Provider: 10/06/18 00:49 Chief Complaint (Nursing): Psychiatric Evaluation History Per: Patient History/Exam Limitations: no limitations Onset/Duration Of Symptoms: Days Current Symptoms Are (Timing): Still Present Suicide/Self Injury Attempted (Context): None Modifying Factor(s): Narcotics, Cocaine Severity: Moderate Pain Scale Rating Of: 4 Associated Symptoms: Depression Involuntary Hold By: None Recent travel outside of the [place]: No Additional History Per: Patient Past Medical History Reviewed: Historical Data, Nursing Documentation, Vital Signs Vital Signs: Last Vital Signs Temp 98.1 F 10/06/18 00:43 Pulse 70 10/06/18 00:43 Resp 16 10/06/18 00:43 BP 138/79 10/06/18 00:43 Pulse Ox 98 10/06/18 00:43 - Medical History PMH: Anxiety, Bipolar Disorder, Depression, Fractures Denies: Diabetes, Hepatitis, HIV, HTN, Chronic Kidney Disease, Seizures, Sexually Transmitted Disease - [facility] Procedures DETOXIFICATION SERVICES FOR SUBSTANCE ABUSE TREATMENT (08/12/18) GROUP PRINCIPAL TECHNICAL WRITER FOR SUBSTANCE ABUSE TREATMENT, PSYCHOEDUCATION (08/12/18) GROUP PRINCIPAL TECHNICAL WRITER FOR SUBSTANCE ABUSE, COGNITIVE BEHAVIORAL (08/12/18) GROUP PSYCHOTHERAPY (08/12/18) INDIV PSYCHOTHERAPY FOR SUBSTANCE ABUSE TREATMENT, SUPPORT (08/12/18) INDIV PSYCHOTHERAPY FOR SUBSTANCE ABUSE, COGNITIV BEHAVIORAL (08/12/18) INDIV PSYCHOTHERAPY FOR SUBSTANCE ABUSE, MOTIVATION ENHANCE (04/24/18) INDIV PSYCHOTHERAPY FOR SUBSTANCE ABUSE, PSYCHOEDUCATION (08/12/18) INDIVIDUAL PSYCHOTHERAPY, COGNITIVE-BEHAVIORAL (08/12/18) INDIVIDUAL PSYCHOTHERAPY, SUPPORTIVE (08/12/18) Family History: States: No Known Family Hx - Social History Hx Alcohol Use: No Hx Substance Use: Yes - Immunization History Hx Tetanus Toxoid Vaccination: Yes Hx Influenza Vaccination: No Hx Pneumococcal Vaccination: No Review Of Systems Constitutional: Negative for: Fever, Chills Cardiovascular: Negative for: Chest Pain Respiratory: Negative for: Shortness of Breath Gastrointestinal: Negative for: Abdominal Pain Musculoskeletal: Negative for: Arm Pain, Back Pain Neurological: Negative for: Weakness Psych: Positive for: Anxiety, Depression Physical Exam - Physical Exam Appears: Non-toxic, No Acute Distress Skin: Warm, Dry Head: Normacephalic Eye(s): bilateral: Normal Inspection Chest: Symmetrical Cardiovascular: Rhythm Regular Respiratory: No Rales, No Rhonchi, No Wheezing Gastrointestinal/Abdominal: Soft, No Tenderness Back: Normal Inspection Extremity: Normal ROM Extremity: Bilateral: Atraumatic Neurological/Psych: Oriented x3 Gait: Steady ED Course And Treatment - Laboratory Results Result Diagrams: 10/06/18 01:18 10/06/18 01:18 O2 Sat by Pulse Oximetry: 98 Pulse Ox Interpretation: Normal Disposition Discussed With Dr.: Yobany Mao Comment: accepteed the pt on his service and took over the care at 3:32 AM Doctor Will See Patient In The: Hospital Counseled Patient/Family Regarding: Studies Performed, Diagnosis - Disposition Disposition: HOSPITALIZED Disposition Time: 00:50 Condition: FAIR Forms: [employer] (Albanian) - Clinical Impression Clinical Impression: Major depressive single episode severe with psychosis, Cocaine abuse, Opioid use disorder Decision To Admit - Pt Status Changed To: Hospital Disposition Of: Inpatient - Admit Certification Admit to Inpatient:: After my assessment, the patient will require hospitalization for at least two midnights. This is because of the severity of symptoms shown, intensity of services needed, and/or the medical risk in this patient being treated as an outpatient. - InPatient: Physician Admission Certification: I certify that this patient requires 2 or more midnights of care for the following reason:: After my assessment, the patient will require hospitalization for at least two midnights. This is because of the severity of symptoms shown, intensity of services needed, and/or the medical risk in this patient being treated as an outpatient. - . Bed Request Type: Psychiatry Admitting Physician: Yobany Mao Patient Diagnosis: Major depressive single episode severe with psychosis, Cocaine abuse, Opioid use disorder
[2018-10-06 01:20] LABS: BASO # 0.1 K/uL (0.0-0.2); BASO % 0.8 % (0.0-2.0); EOS # 0.1 K/uL (0.0-0.7); EOS % 0.8 % (0.0-4.0); HEMOGLOBIN 11.6 g/dL (12.0-18.0); LYMPH # 1.8 K/uL (1.0-4.3); LYMPH % 21.1 % (20.0-40.0); MEAN CORPUSCULAR HEMOGLOBIN 31.7 pg (27.0-31.0); MEAN CORPUSCULAR HGB CONC 34.5 g/dL (33.0-37.0); MEAN PLATELET VOLUME 8.4 fL (7.2-11.7); MONO # 0.6 K/uL (0.0-0.8); MONO % 6.6 % (0.0-10.0); NEUT # 6.1 K/uL (1.8-7.0); NEUT % 70.7 % (50.0-75.0); NRBC % 0.1 % (0.0-2.0); RBC 3.67 Mil/uL (4.40-5.90); RED CELL DISTRIBUTION WIDTH 14.6 % (11.5-14.5); WHITE BLOOD COUNT 8.6 K/uL (4.8-10.8)
[2018-10-06 01:42] LABS: ALB/GLOB RATIO 1.4 (1.0-2.1); ALBUMIN 4.4 g/dL (3.5-5.0); ALT/SGPT 52 U/L (21-72); AST/SGOT 58 U/L (17-59); BLOOD UREA NITROGEN 16 mg/dL (9-20); CALCIUM 9.3 mg/dl (8.6-10.4); GFR NON-AFRICAN AMERICAN > 60
[2018-10-06 01:42] LABS: SQUAMOUS EPITHIAL 1 /hpf (0-5); URINE BILIRUBIN NEGATIVE (NEGATIVE); URINE BLOOD NEGATIVE (NEGATIVE); URINE CALCIUM OXALATE CRYSTALS OCC /hpf (<OCC); URINE CLARITY Hazy (Clear); URINE COLOR Amber (YELLOW); URINE GLUCOSE (UA) NORMAL (Normal); URINE LEUKOCYTE ESTERASE NEG Leu/uL (Negative); URINE PROTEIN 2+ mg/dL (NEGATIVE)
[2018-10-06 02:07] LABS: BARBITURATES, UR NEGATIVE (NEGATIVE); BENZODIAZEPINES, UR NEGATIVE (NEGATIVE); PHENCYCLIDINE, UR NEGATIVE (NEGATIVE)
[2018-10-06 02:52] LABS: OPIATES, UR POSITIVE (NEGATIVE)
[2018-10-06] MEDS ORDERED: Influenza Vaccine 60 mcg/0.5 mL SYR (4YR UP) IM ONE (06:08)
[2018-10-06] MEDS ORDERED: Pneumococcal 23-Valent Vaccine IM ONE (06:09)
[2018-10-06 06:16] VITALS: O2SAT 97
--- NOTE | 2018-10-06 06:23 | PCM.BM ---
<Cash Dotson - Last Filed: 10/06/18 06:21> Treatment Plan Problems - Problems identified on initial assessmt Medication Nonadherence Date Initiated: 10/06/18 Time Initiated: 05:00 Assessment reference: NA Status: Active Hopelessness/Helplessness Date Initiated: 10/06/18 Time Initiated: 05:00 Assessment reference: NA Status: Active Treatment assets and liabiliti Patient Assests: adapts well, cooperative, self-reliant, ADL independent, good support system, negotiates basic needs, cognitively intact Patient Liabilities: financial problems, substance abuse - Milieu Protocol Maintain good personal hygiene: daily Encourage regular showers, daily Remind patient to perform daily oral care, daily Assist patient to perform ADL's Conduct patient checks and document Observation sheet: Q15 minutes Maintain personal safety: every shift Educate patient to report safety concerns to staff, every shift Monitor environment for contraband/sharps Medication safety: Monitor for expected outcome, potential side effects: every shift, Assess barriers to learning: every shift, Assess readiness for medication education: every shift <Nona Engel - Last Filed: 10/08/18 11:33> - Diagnosis (1) Major depressive single episode severe with psychosis Status: Acute Interventions: 10/08/18 11:33 * Assess/adjust medications daily and /or as needed * See patient on an individual basis 7x/week to assess symptoms of depression * Monitor for side effects & effectiveness of medications * (2) Opioid use disorder Status: Acute Interventions: 10/08/18 11:34 * Assess 7x/week regarding severity of withdrawal * Educate regarding risks, benefits, side effects and alternatives of medications * Use Motivational Interviewing for abstinence * Use CBT for relapse prevention * Medication management for withdrawal symptoms * Encourage medication assisted treatment * <Mandie Santos - Last Filed: 10/08/18 11:56> Family Contact Family involvement: Patient does not wish Family/SO involvement Family contact: Patient declines to allow family contact at present - Goals for Treatment Patient goals for treatment: "I want to go back to [place]." Discharge/Continuing Care - Education Needs Education Needs: Patient Medication, Patient Diagnosis/Disease Process, Patient Coping Skills - Discharge Discharge Criteria: Free of Suicidal thoughts, Free of agitation, Normal sleep pattern, Ability to care for self, No longer exhibiting s/s of withdrawal, Reduction of target symptoms Discharge to:: Substance Abuse Rehab - Treatment Team Participation Discussed with Family/SO: No Was Patient/Family/SO present at Treatment Team Meeting: Yes
--- NOTE | 2018-10-06 12:19 | PCM.PSYCH ---
Initial Psychiatric Evaluation - Initial Psychiatric Evaluation Type of Admission: Voluntary Legal Status: Capacity Chief Complaint (in patient's own words): "I am not well at all" History of Present Illness and Precipitating Events: The patient is seen, chart reviewed and case discussed. This is a 43-year-old male, living with his and children. He has 4 children aged 9, 3, 23 and 26. He is disabled because he fell 8 months ago at work. He was a airplane mechanic apprentice. The patient is here for depression and he had suicidal thoughts including a plan to overdose and . He admits to using heroin 12 bags IV for the past 25 years on and off. He already eats both accidentally and intentionally in the past last time was a few months ago. He has been to detox twice and rehab 3 times. He also uses cocaine IV and smokes 1 pack. Per day cigarettes he denies other drugs and alcohol. He denies himanshu but has lots of depressive sxs and sometimes hears voices. He was referred to [facility] but he did not go. He was recently at [facility] but left. Ho wever, he wants to go back. Past psychiatric: Mostly substance related treatment Medical history: Hepatitis C and current fracture in arm Family psych history: Sister was depressed Past Psychiatric History - Past Psychiatric History Pertinent Medical Hx (Current Medical&Sleep Prob, Allergies): Allergies Allergy/AdvReac Type Severity Reaction Status Date / Time FISH Allergy RASH Verified 10/06/18 06:06 lactose Allergy RASH Verified 10/06/18 06:04 Gabapentin [Neurontin] 300 mg PO TID #90 cap 08/17/18 traZODone [Desyrel] 100 mg PO HS PRN #30 tab 08/17/18 hydrOXYzine Pamoate [Vistaril] 25 mg PO TID 10/06/18 Review of Systems - Psychiatric Psychiatric: Abnormal Sleep Pattern, Anhedonia, Anxiety, Change in Appetite, Depression, Difficulty Concentrating. absent: Hallucinations, Homicidal Ideation, Suicidal Ideation Mental Status Examination - Personal Presentation Personal Presentation: Looks stated age - Affect Affect: Constricted - Motor Activity Motor Activity: Calm - Reliability in Providing Information Reliability in Providing Information: Good - Speech Speech: Organized - Mood Mood: Depressed, Anxious - Formal Thought Process Formal Thought Process: No Impairment - Cognitive Functions Orientation: Person, Place, Situation, Time Sensorium: Alert Attention/Concentration: Easily distracted Estimate of Intelligence: Average Judgement: Intact, as evidence by: Insight regarding need for hospitalization Memory: Recent intact, as evidence by: Ability to recall events of the day, Remote intact, as evidenced by: Abilit to recall sig. life events - Risk Risk: Withdrawal, Diminished functioning - Strength & Assets Inventory Strength & Assets Inventory: Cooperative - Limitations Limitations: Other DSM 5 DX - DSM 5 DSM 5 Diagnosis: Major depressive disorder, severe, single Opioid withdrawal Opioid use disorder, severe Cocaine use disorder, severe - Recommended/Plan of Treatment Treatment Recommendations and Plan of Treatment: Taper with methadone Gabapentin for augmentation if needed As needed medications All risks, benefits and alternatives of the meds discussed, and the pt agreed and understood. Attend groups and activities Supportive therapy and psychoeducation DE for abstinence CBT for relapse prevention Encourage MAT Refer to rehab or IOP, and self-help groups Teach healthy lifestyle methods, i.e. diet, exercise, meditation Smoking cessation with DE Nicotine patch if needed 34 min Projected ELOS: 6 days Prognosis: good w treatment - Smoking Cessation Smoking Cessation Initiated: Yes
[2018-10-06] MEDS ORDERED: Aluminum Hydroxide/Magnesium Hydroxide Susp (30 mL) PO PRN (12:21)
[2018-10-07 06:59] VITALS: RESP 20
--- NOTE | 2018-10-08 01:09 | PCM.PYCHPN ---
Psychiatric Progress Note - Psychiatric Progress Note Patient seen today, length of contact: 15 min Patient Chief Complaint: "I am not well at all" Medication Change: Yes Medical Record Reviewed: Yes Mental Status Examination - Cognitive Function Orientation: Person, Place, Situation, Time - Mood Mood: Depressed, Anxious - Affect Affect: Constricted - Formal Thought Process Formal Thought Process: No Impairment - Homicidal Ideation Homicidal Ideation: No Goal/Treatment Plan - Goal/Treatment Plan Progress Toward Problem(s) and Goals/Treatment Plan: Taper with methadone Gabapentin for augmentation if needed As needed medications All risks, benefits and alternatives of the meds discussed, and the pt agreed and understood. Attend groups and activities Supportive therapy and psychoeducation KS for abstinence CBT for relapse prevention Encourage MAT Refer to rehab or IOP, and self-help groups Teach healthy lifestyle methods, i.e. diet, exercise, meditation Smoking cessation with KS Nicotine patch if needed 34 min
--- NOTE | 2018-10-08 10:30 | PCM.PYCHPN ---
Psychiatric Progress Note - Psychiatric Progress Note Patient seen today, length of contact: 15 min Patient Chief Complaint: Patient was seen and evaluated, chart reviewed and discussed the staff. Patient still reports depressed mood and at times feelings of hopelessness and helplessness. He still reports issues with sleep and appetite. He still reports withdrawal symptoms including cramps, joint pains, nausea, headaches and anxiety. He is taking medication but denies any side effects Supportive therapy was given Medication Change: Yes Medical Record Reviewed: Yes Mental Status Examination - Cognitive Function Orientation: Person, Place, Situation, Time Memory: Intact Attention: WNL Concentration: Poor Association: WNL Fund of Knowledge: Poor - Mood Mood: Depressed, Anxious - Affect Affect: Constricted - Speech Speech: Soft - Formal Thought Process Formal Thought Process: No Impairment - Suicidal Ideation Suicidal Ideation: No - Homicidal Ideation Homicidal Ideation: No Goal/Treatment Plan - Goal/Treatment Plan Need for Continued Stay: Remain at risks for inpatient hospitalization Progress Toward Problem(s) and Goals/Treatment Plan: Major depressive disorder, severe, single Opioid withdrawal Opioid use disorder, severe Cocaine use disorder, severe CBT TN for abstinence Taper with methadone Gabapentin for augmentation Remeron for depression Trazodone for insomnia Hydroxyzine for anxiety As needed medications All risks, benefits and alternatives of the meds discussed, and the pt agreed and understood. Attend groups and activities Supportive therapy and psychoeducation TN for abstinence Refer to rehab or IOP, and self-help groups Smoking cessation with TN Nicotine patch if needed Teach healthy lifestyle methods, i.e. diet, exercise, meditation - Smoking Cessation Smoking Cessation Initiated: No
--- NOTE | 2018-10-09 12:14 | PCM.PYCHPN ---
Psychiatric Progress Note - Psychiatric Progress Note Patient seen today, length of contact: 15 min Patient Chief Complaint: Patient was seen and evaluated, chart reviewed and discussed the staff. Patient still reports depressed mood and at times feelings of hopelessness and helplessness. He still reports issues with sleep and appetite. He still reports withdrawal symptoms including cramps, joint pains, nausea, headaches and anxiety. He is taking medication but denies any side effects Supportive therapy was given Medication Change: Yes Medical Record Reviewed: Yes Mental Status Examination - Cognitive Function Orientation: Person, Place, Situation, Time Memory: Intact Attention: WNL Concentration: Poor Association: WNL Fund of Knowledge: Poor - Mood Mood: Depressed, Anxious - Affect Affect: Constricted - Speech Speech: Soft - Formal Thought Process Formal Thought Process: No Impairment - Suicidal Ideation Suicidal Ideation: No - Homicidal Ideation Homicidal Ideation: No Goal/Treatment Plan - Goal/Treatment Plan Need for Continued Stay: Remain at risks for inpatient hospitalization Progress Toward Problem(s) and Goals/Treatment Plan: Major depressive disorder, severe, single Opioid withdrawal Opioid use disorder, severe Cocaine use disorder, severe CBT NV for abstinence Taper with methadone Gabapentin for augmentation Remeron for depression Trazodone for insomnia Hydroxyzine for anxiety As needed medications All risks, benefits and alternatives of the meds discussed, and the pt agreed and understood. Attend groups and activities Supportive therapy and psychoeducation NV for abstinence Refer to rehab or IOP, and self-help groups Smoking cessation with NV Nicotine patch if needed Teach healthy lifestyle methods, i.e. diet, exercise, meditation
--- NOTE | 2018-10-09 13:12 | CP.PCM.CON ---
History of Present Illness - History of Present Illness History of Present Illness: Katie Gardner PGY1 Consult Note for Dr. Potter CC: Oozing from wound HPI: Patient is a 43 year old male with past medical history of Hepatitis C, right wrist fracture, depression, anxiety, bipolar disorder, and drug use who was admitted to the Psych unit for suicidal ideation. Patient today complains of drainage from right wrist wound for the past 2 days. Yesterday, he noticed some clear red and white drainage from the suture site on his right wrist, which has stopped draining since then. Patient denies any fever, chills, nausea, vomiting, or diarrhea. Patient denies any numbness or tingling to the area. He reports falling 7 months ago on his right hand, when he suffered fracture of the wrist and had surgery twice to repair it. After the surgery, the patient reports getting a MRSA infection in the surgical site. At that time he was treated. He reports getting a 3rd surgery for tendon repair of the right w rist on 09/25/17 at [facility]. He was told that the sutures and splint should be removed today. PMH: Hepatitis C, right wrist fracture SxH: R wrist fracture repair with titanium implant x2 01/2018, R wrist tendon rupture repair 09/25/17 SocH: uses 12 bags of heroin IV daily for the past 25 years, IV cocaine, 20 pack/year tobacco history. Denies alcohol use. FamH: denies Allergies: NKDA PMD: none Review of Systems - Constitutional Constitutional: absent: Fever, Headache - EENT Eyes: absent: Blurred Vision, Change in Vision Nose/Mouth/Throat: absent: Nasal Congestion, Dysphagia, Sore Throat - Cardiovascular Cardiovascular: absent: Chest Pain, Dyspnea - Respiratory Respiratory: absent: Cough, Dyspnea - Gastrointestinal Gastrointestinal: absent: Abdominal Pain, Constipation, Diarrhea, Nausea, Vomiting - Genitourinary Genitourinary: absent: Dysuria - Musculoskeletal Musculoskeletal: absent: Joint Swelling, Limited Range of Motion, Muscle Weakne ss, Numbness, Tingling - Integumentary Integumentary: Wounds. absent: Pruritus, Swelling - Neurological Neurological: absent: Numbness, Tingling, Weakness - Psychiatric Psychiatric: Auditory Hallucinations. absent: Hallucinations, Homicidal Ideation - Hematologic/Lymphatic Hematologic: absent: Easy Bleeding Past Patient History - Infectious Disease Hx of Infectious Diseases: MRSA - Past Medical History & Family History Past Medical History?: Yes - Past Social History Smoking Status: Heavy Smoker > 10 Cigarettes Daily Alcohol: None Drugs: Cannabis, Cocaine, Opiates - CARDIAC Hx Hypertension: No - PULMONARY Hx Respiratory Disorders: No Hx Tuberculosis: No - NEUROLOGICAL Hx Seizures: No - HEENT Hx HEENT Problems: No - RENAL Hx Chronic Kidney Disease: No - ENDOCRINE/METABOLIC Hx Endocrine Disorders: No - HEMATOLOGICAL/ONCOLOGICAL Hx Human Immunodeficiency Virus (HIV): No - INTEGUMENTARY Hx Dermatological Problems: No - MUSCULOSKELETAL/RHEUMATOLOGICAL Hx Fractures: Yes - GASTROINTESTINAL Hx Gastrointestinal Disorders: No - GENITOURINARY/GYNECOLOGICAL Hx Sexually Transmitted Disorders: No - PSYCHIATRIC Hx Substance Use: Yes - SURGICAL HISTORY Hx Surgeries: Yes Other/Comment: wrist surgery - ANESTHESIA Hx Anesthesia: Yes Hx Anesthesia Reactions: No Meds Allergies/Adverse Reactions: Allergies Allergy/AdvReac Type Severity Reaction Status Date / Time FISH Allergy RASH Verified 10/06/18 06:06 lactose Allergy RASH Verified 10/06/18 06:04 - Medications Medications: Current Medications Al Hydrox/Mg Hydrox/Simethicone (Maalox 30 Ml) 30 ml PO TID PRN PRN Reason: Indigestion / Heartburn Clonidine HCl (Catapres) 0.1 mg PO Q4 PRN PRN Reason: COWS Score More or Equal to 5 Gabapentin (Neurontin) 300 mg PO TID [facility] Last Admin: 10/09/18 09:02 Dose: 300 mg Hydroxyzine HCl (Atarax) 50 mg PO Q6H PRN PRN Reason: Anxiety Ibuprofen (Motrin Tab) 600 mg PO Q6H PRN PRN Reason: Pain, moderate (4-7) Loperamide HCl (Imodium) 2 mg PO Q8 PRN PRN Reason: Diarrhea Methadone HCl (Methadone) 5 mg PO Q24H [facility]; Taper Stop: 10/10/18 09:59 Last Admin: 10/09/18 09:02 Dose: 5 mg Mirtazapine (Remeron) 30 mg PO HS LE Last Admin: 10/08/18 21:07 Dose: 30 mg Ondansetron HCl (Zofran Tab) 4 mg PO Q8 PRN PRN Reason: Nausea/Vomiting Trazodone HCl (Desyrel) 100 mg PO HS PRN PRN Reason: Insomnia Last Admin: 10/08/18 21:07 Dose: 100 mg Physical Exam - Constitutional Appears: Well, No Acute Distress - Head Exam Head Exam: ATRAUMATIC, NORMOCEPHALIC - Eye Exam Eye Exam: EOMI, PERRL Pupil Exam: NORMAL ACCOMODATION - ENT Exam ENT Exam: Mucous Membranes Moist - Neck Exam Additional comments: erythematous nodule with secondary crusting on R neck, likely healing injection site - Respiratory Exam Respiratory Exam: Clear to Auscultation Bilateral, NORMAL BREATHING PATTERN. absent: Decreased Breath Sounds, Rales, Rhonchi, Wheezes - Cardiovascular Exam Cardiovascular Exam: REGULAR RHYTHM, +S1, +S2. absent: Gallop, Rubs, Systolic Murmur - GI/Abdominal Exam GI & Abdominal Exam: Normal Bowel Sounds, Soft. absent: Distended, Firm, Tenderness - Extremities Exam Additional comments: RUE: forearm and hand in splint. 2cm laceration repair with sutures in dorsal hand. 5cm laceration repair with sutures on dorsal radial wrist. no bulging of sutures, edema, or surrounding erythema. minimal serosanguinous drainage from wrist laceration repair appreciated. no warmth to touch. normal capillary refill in right hand. - Neurological Exam Neurological exam: Alert, CN II-XII Intact, Normal Gait, Oriented x3, Reflexes Normal Additional comments: sensation and range of motion intact in R hand and wrist. - Psychiatric Exam Psychiatric exam: Normal Affect, Normal Mood - Skin Additional comments: 2cm laceration repair with sutures in dorsal hand. 5cm laceration repair with sutures on dorsal radial wrist. no bulging of sutures, edema, or surrounding erythema. minimal serosanguinous drainage from wrist laceration repair appreciated. no warmth to touch. Results - Vital Signs Recent Vital Signs: Last Vital Signs Temp 98.4 F 10/09/18 09:44 Pulse 84 10/09/18 09:44 Resp 20 10/07/18 06:59 BP 107/49 L 10/09/18 09:44 Pulse Ox 97 10/06/18 06:15 - Labs Result Diagrams: 10/09/18 13:52 10/09/18 13:52 Assessment & Plan - Assessment and Plan (Free Text) Assessment: 43 year old male with past medical history of Hepatitis C, right wrist fracture, depression, anxiety, bipolar disorder, and drug use who was admitted to the Psych unit for suicidal ideation, Medicine team consulted for drainage from right wrist wound. Plan: Right Wrist Wound - s/p R wrist tendon repair 09/25/[address] Teddy Benson at [facility] - 2 laceration repairs with sutures intact with minimal serosanguinous drainage - patient with history of MRSA, cover for MRSA at this time - Doxycycline 100mg PO q12h - Wound Culture taken today, f/u results - patient afebrile, no leukocytosis - cellulitis unlikely at this time - Orthopedic Surgeon Dr. Benson called multiple times at for instructions on splint and/or suture removal, awaiting response. - patient range of motion intact in hand, repeat tendon rupture unlikely and therefore MRI not needed at this time - continue zofran 4mg PO q8h PRN nausea - continue ibuprofen 600mg PO q6h PRN pain Suicidal Ideation h/o Anxiety, Depression, Bipolar disorder - continue under psychiatric care - patient planning on admission to institution upon discharge - currently taking: Clonidine 0.1mg PO q4h PRN Methadone taper Remeron 30mg PO HS Trazodone 100mg PO HS PRN Neurontin 300mg PO TID Atarax 50mg PO q6h PRN PPX: GI - not indicated at this time DVT - patient ambulating and at low risk for VTE, no medical prophylaxis frederick cated at this time Regular Diet Patient seen and case reviewed with Dr. Potter
[2018-10-09 13:56] LABS: BASO # 0.1 K/uL (0.0-0.2); BASO % 0.8 % (0.0-2.0); EOS # 0.2 K/uL (0.0-0.7); HEMOGLOBIN 12.3 g/dL (12.0-18.0); LYMPH # 2.4 K/uL (1.0-4.3); LYMPH % 25.5 % (20.0-40.0); MEAN CELL VOLUME 92.4 fL (80.0-94.0); MEAN CORPUSCULAR HEMOGLOBIN 31.5 pg (27.0-31.0); MEAN CORPUSCULAR HGB CONC 34.1 g/dL (33.0-37.0); MONO # 0.7 K/uL (0.0-0.8); MONO % 7.1 % (0.0-10.0); NEUT # 6.1 K/uL (1.8-7.0); NEUT % 64.6 % (50.0-75.0); RBC 3.91 Mil/uL (4.40-5.90); RED CELL DISTRIBUTION WIDTH 14.6 % (11.5-14.5); WHITE BLOOD COUNT 9.5 K/uL (4.8-10.8)
[2018-10-09 14:12] LABS: ALB/GLOB RATIO 1.3 (1.0-2.1); ALBUMIN 4.2 g/dL (3.5-5.0); ALT/SGPT 50 U/L (21-72); AST/SGOT 56 U/L (17-59); BLOOD UREA NITROGEN 14 mg/dL (9-20); CALCIUM 9.4 mg/dl (8.6-10.4); GFR NON-AFRICAN AMERICAN > 60
[2018-10-09] MEDS ORDERED: Bacitracin 500 Units/gm Oint Foilpak UD TOP ONE (19:00)
[2018-10-09] MEDS ORDERED: Magnesium Hydroxide Susp 30 ml UD PO PRN (20:28)
--- NOTE | 2018-10-10 07:37 | CP.PCM.PN ---
Subjective - Date & Time of Evaluation Date of Evaluation: 10/10/18 Time of Evaluation: 07:37 - Subjective Subjective: PGY-1 Medicine Progress Note for Dr. Potter Patient seen and examined at bedside this AM, resting comfortably. No acute somatic complaints at this time. Patient is able to move right wrist with some mild pain. No erythema, bleeding, or drainage noted around suture sites. Spoke to patient's orthopedic at [facility], who encourages no movement of extremity for 1 more week, to remain in a splint for a total of 3 weeks. Objective - Vital Signs/Intake and Output Vital Signs (last 24 hours): Temp Pulse Resp BP Pulse Ox 98.4 F 83 20 134/79 97 10/09/18 09:44 10/09/18 14:53 10/07/18 06:59 10/09/18 14:53 10/06/18 06:15 - Medications Medications: Current Medications Al Hydrox/Mg Hydrox/Simethicone (Maalox 30 Ml) 30 ml PO TID PRN PRN Reason: Indigestion / Heartburn Clonidine HCl (Catapres) 0.1 mg PO Q4 PRN PRN Reason: COWS Score More or Equal to 5 Docusate Sodium (Colace) 100 mg PO BID PRN PRN Reason: Constipation Last Admin: 10/09/18 21:19 Dose: 100 mg Doxycycline Hyclate (Doryx) 100 mg PO Q12H [facility]; Protocol Last Admin: 10/10/18 03:51 Dose: 100 mg Gabapentin (Neurontin) 300 mg PO TID [facility] Last Admin: 10/09/18 18:05 Dose: 300 mg Hydroxyzine HCl (Atarax) 50 mg PO Q6H PRN PRN Reason: Anxiety Ibuprofen (Motrin Tab) 600 mg PO Q6H PRN PRN Reason: Pain, moderate (4-7) Loperamide HCl (Imodium) 2 mg PO Q8 PRN PRN Reason: Diarrhea Magnesium Hydroxide (Milk Of Magnesia) 30 ml PO BID PRN PRN Reason: Constipation Methadone HCl (Methadone) 5 mg PO Q24H [facility]; Taper Stop: 10/10/18 09:59 Last Admin: 10/09/18 09:02 Dose: 5 mg Mirtazapine (Remeron) 30 mg PO [facility] Last Admin: 10/09/18 21:19 Dose: 30 mg Ondansetron HCl (Zofran Tab) 4 mg PO Q8 PRN PRN Reason: Nausea/Vomiting Trazodone HCl (Desyrel) 100 mg PO HS PRN PRN Reason: Insomnia Last Admin: 10/09/18 21:19 Dose: 100 mg - Labs Labs: 10/09/18 13:52 10/09/18 13:52 - Constitutional Appears: Non-toxic, No Acute Distress - Head Exam Head Exam: ATRAUMATIC, NORMAL INSPECTION, NORMOCEPHALIC - Eye Exam Eye Exam: EOMI, Normal appearance Pupil Exam: NORMAL ACCOMODATION - ENT Exam ENT Exam: Mucous Membranes Moist, Normal Exam - Neck Exam Neck Exam: Full ROM, Normal Inspection - Respiratory Exam Respiratory Exam: Clear to Ausculation Bilateral, NORMAL BREATHING PATTERN. absent: Accessory Muscle Use, Rales, Rhonchi, Wheezes, Respiratory Distress, Stridor - Cardiovascular Exam Cardiovascular Exam: REGULAR RHYTHM, +S1, +S2 - GI/Abdominal Exam GI & Abdominal Exam: Soft, Normal Bowel Sounds. absent: Distended, Firm, Guarding, Rigid, Tenderness, Rebound - Extremities Exam Additional comments: RUE: forearm and hand in splint. 2cm laceration repair with sutures in dorsal hand, mild eruption noted and minimal serosanguinous drainage. 5cm laceration repair with sutures on dorsal radial wrist. No bulging of sutures or evidence of infection, no edema or surrounding erythema, no warmth to touch. Normal capillary refill in right hand. - Neurological Exam Neurological Exam: Alert, Awake, Normal Gait, Oriented x3 - Skin Skin Exam: Intact, Normal Color, Warm Additional comments: findings as above Assessment and Plan - Assessment and Plan (Free Text) Assessment: 43 year old male with past medical history of Hepatitis C, right wrist fracture, depression, anxiety, bipolar disorder, and drug use who was admitted to the Psych unit for suicidal ideation, Medicine team consulted for drainage from right wrist wound. Plan: Right Wrist Wound -s/p R wrist tendon repair (09/25/18) at [facility] -2 laceration repairs with sutures intact, no drainage noted today -afebrile, no leukocytosis noted -no erythema noted, not warm to touch. cellulitis unlikely at this time -patient with history of MRSA, cover for MRSA at this time -Doxycycline 100 mg PO BID -mupirocen ointment added - Wound Culture prelim: gram positive cocci -spoke to Orthopedic surgeon's office, , with recommendations for thermoplastic splint to be worn for a total of 3 weeks. No movement of the extremity recommended for the following week. Sutures may be removed. -Hand surgeon consult (Dr. Broderick) for possible debridement of eruption along R dorsum of hand -zofran 4mg PO q8h PRN nausea -ibuprofen 600mg PO q6h PRN pain Suicidal Ideation -h/o Anxiety, Depression, Bipolar disorder -continue under psychiatric care -patient planning on admission to institution upon discharge -Clonidine 0.1mg PO q4h PRN -Methadone taper -Remeron 30mg PO HS -Trazodone 100mg PO HS PRN -Neurontin 300mg PO TID -Atarax 50mg PO q6h PRN Ppx, Diet, Disposition -DVT ppx: ambulating, low risk for VTE. No ppx indicated at this time -GI ppx: not indicated -Diet: regular -Dispo: Per Orthopedic recs, thermoplastic splint to be worn for a total of 3 w eeks. No movement of the extremity recommended for the following week. Sutures may be removed. Continue with doxycycline as prescribed for a total of 7 days. Case discussed with Dr. Tariq Camarena DO, PGY-1
[2018-10-11 06:50] VITALS: BP 116/87; PULSE 94; TEMP 98.1
--- NOTE | 2018-10-11 06:57 | CP.PCM.PN ---
Subjective - Date & Time of Evaluation Date of Evaluation: 10/11/18 Time of Evaluation: 06:57 - Subjective Subjective: PGY-1 Medicine Progress Note for Dr. Potter Patient seen and examined at bedside this AM s/p suture removal. No acute overnight events reported. Patient is in no acute distress or discomfort, wearing R wrist splint. Patient verbalized understanding of instructions provided, to wear splint for a total of 3 weeks with thumb in extension. Patient is advised to limit movement of wrist for the following week. Objective - Vital Signs/Intake and Output Vital Signs (last 24 hours): Temp Pulse Resp BP Pulse Ox 98.1 F 94 H 20 116/87 97 10/11/18 06:49 10/11/18 06:49 10/11/18 06:49 10/11/18 06:49 10/06/18 06:15 - Medications Medications: Current Medications Al Hydrox/Mg Hydrox/Simethicone (Maalox 30 Ml) 30 ml PO TID PRN PRN Reason: Indigestion / Heartburn Clonidine HCl (Catapres) 0.1 mg PO Q4 PRN PRN Reason: COWS Score More or Equal to 5 Last Admin: 10/10/18 23:55 Dose: 0.1 mg Docusate Sodium (Colace) 100 mg PO BID PRN PRN Reason: Constipation Last Admin: 10/09/18 21:19 Dose: 100 mg Doxycycline Hyclate (Doryx) 100 mg PO Q12H [facility]; Protocol Last Admin: 10/11/18 04:30 Dose: 100 mg Gabapentin (Neurontin) 300 mg PO TID [facility] Last Admin: 10/10/18 17:44 Dose: 300 mg Hydroxyzine HCl (Atarax) 50 mg PO Q6H PRN PRN Reason: Anxiety Last Admin: 10/10/18 22:29 Dose: 50 mg Ibuprofen (Motrin Tab) 600 mg PO Q6H PRN PRN Reason: Pain, moderate (4-7) Loperamide HCl (Imodium) 2 mg PO Q8 PRN PRN Reason: Diarrhea Magnesium Hydroxide (Milk Of Magnesia) 30 ml PO BID PRN PRN Reason: Constipation Mirtazapine (Remeron) 30 mg PO [facility] Last Admin: 10/10/18 21:19 Dose: 30 mg Mupirocin (Bactroban Ointment) 0 gm TOP DAILY LE Ondansetron HCl (Zofran Tab) 4 mg PO Q8 PRN PRN Reason: Nausea/Vomiting Trazodone HCl (Desyrel) 100 mg PO HS PRN PRN Reason: Insomnia Last Admin: 10/10/18 21:19 Dose: 100 mg - Labs Labs: 10/09/18 13:52 10/09/18 13:52 - Constitutional Appears: Non-toxic, No Acute Distress - Head Exam Head Exam: ATRAUMATIC, NORMAL INSPECTION, NORMOCEPHALIC - Eye Exam Eye Exam: EOMI, Normal appearance Pupil Exam: NORMAL ACCOMODATION - ENT Exam ENT Exam: Mucous Membranes Moist, Normal Exam - Neck Exam Neck Exam: Full ROM, Normal Inspection - Respiratory Exam Respiratory Exam: Clear to Ausculation Bilateral, NORMAL BREATHING PATTERN. absent: Accessory Muscle Use, Rales, Rhonchi, Wheezes, Respiratory Distress, Stridor - Cardiovascular Exam Cardiovascular Exam: REGULAR RHYTHM, +S1, +S2 - GI/Abdominal Exam GI & Abdominal Exam: Soft, Normal Bowel Sounds - Extremities Exam Extremities Exam: Full ROM, Normal Capillary Refill, Normal Inspection. absent: Calf Tenderness, Pedal Edema Additional comments: RUE: forearm and hand in splint. 2cm laceration repair in dorsal hand, mild eruption noted and minimal serosanguinous drainage. 5cm laceration repair with dorsal radial wrist. No bulging or evidence of infection, no edema or surrounding erythema, no warmth to touch. Normal capillary refill in right hand. - Back Exam Back Exam: NORMAL INSPECTION - Neurological Exam Neurological Exam: Alert, Awake, Oriented x3 - Psychiatric Exam Psychiatric exam: Normal Affect, Normal Mood - Skin Skin Exam: Dry, Intact, Normal Color, Warm Assessment and Plan - Assessment and Plan (Free Text) Assessment: 43 year old male with past medical history of Hepatitis C, right wrist fracture, depression, anxiety, bipolar disorder, and drug use who was admitted to the Psych unit for suicidal ideation, Medicine team consulted for drainage from right wrist wound. Plan: Right Wrist Wound -s/p R wrist tendon repair (09/25/18) at [facility] -2 laceration repairs with sutures intact, no drainage noted today -afebrile, no leukocytosis noted -no erythema noted, not warm to touch. cellulitis unlikely at this time -patient with history of MRSA, cover for MRSA at this time -Doxycycline 100 mg PO BID -mupirocen ointment added - Wound Culture prelim: gram positive cocci -spoke to Orthopedic surgeon's office, , with recommendations for thermoplastic splint to be worn for a total of 3 weeks. No movement of the extremity recommended for the following week. Sutures may be removed. -Hand surgeon consult (Dr. Broderick) for possible debridement of eruption along R dorsum of hand -zofran 4mg PO q8h PRN nausea -ibuprofen 600mg PO q6h PRN pain Suicidal Ideation -h/o Anxiety, Depression, Bipolar disorder -continue under psychiatric care -patient planning on admission to institution upon discharge -Clonidine 0.1mg PO q4h PRN -Methadone taper -Remeron 30mg PO HS -Trazodone 100mg PO HS PRN -Neurontin 300mg PO TID -Atarax 50mg PO q6h PRN Ppx, Diet, Disposition -DVT ppx: ambulating, low risk for VTE. No ppx indicated at this time -GI ppx: not indicated -Diet: regular -Dispo: Per Orthopedic recs, thermoplastic splint to be worn for a total of 3 weeks. No movement of the extremity recommended for the following week. Continue with doxycycline as prescribed for a total of 7 days. We will sign off of case, please reconsult as needed. Thank you. Case discussed with Dr. Tariq Camarena DO, PGY-1
--- NOTE | 2018-10-11 09:46 | PCM.PYCHPN ---
Psychiatric Progress Note - Psychiatric Progress Note Patient seen today, length of contact: 15 min Patient Chief Complaint: Patient was seen and evaluated, chart reviewed and discussed the staff. Patient still reports depressed mood and at times feelings of hopelessness and helplessness. He still reports issues with sleep and appetite. He still reports withdrawal symptoms including cramps, joint pains, nausea, headaches and anxiety. He is taking medication but denies any side effects Supportive therapy was given Medication Change: Yes Medical Record Reviewed: Yes Mental Status Examination - Cognitive Function Orientation: Person, Place, Situation, Time Memory: Intact Attention: WNL Concentration: Poor Association: WNL Fund of Knowledge: Poor - Mood Mood: Depressed, Anxious - Affect Affect: Constricted - Speech Speech: Soft - Formal Thought Process Formal Thought Process: No Impairment - Suicidal Ideation Suicidal Ideation: No - Homicidal Ideation Homicidal Ideation: No Goal/Treatment Plan - Goal/Treatment Plan Need for Continued Stay: Remain at risks for inpatient hospitalization Progress Toward Problem(s) and Goals/Treatment Plan: Major depressive disorder, severe, single Opioid withdrawal Opioid use disorder, severe Cocaine use disorder, severe CBT DC for abstinence Taper with methadone Gabapentin for augmentation Remeron for depression Trazodone for insomnia Hydroxyzine for anxiety As needed medications All risks, benefits and alternatives of the meds discussed, and the pt agreed and understood. Attend groups and activities Supportive therapy and psychoeducation DC for abstinence Refer to rehab or IOP, and self-help groups Smoking cessation with DC Nicotine patch if needed Teach healthy lifestyle methods, i.e. diet, exercise, meditation
--- NOTE | 2018-10-11 09:48 | PCM.PYCHDC ---
Mental Status Examination - Mental Status Examination Orientation: Person, Place, Situation, Time Memory: Intact Mood: Neutral Affect: Constricted Speech: Soft Attention: WNL Concentration: WNL Association: WNL Fund of Knowledge: WNL Formal Thought Process: No Impairment Description of patient's judgement and insight: good, fair Psychotic Thoughts and Behaviors: denies any AVH Suicidal Ideation: No Current Homicidal Ideation?: No Discharge Summary - Discharge Note Reason for Hospitalization: The patient is seen, chart reviewed and case discussed. This is a 43-year-old male, living with his and children. He has 4 children aged 9, 3, 23 and 26. He is disabled because he fell 8 months ago at work. He was a vegetable farm manager. The patient is here for depression and he had suicidal thoughts including a plan to overdose and . He admits to using heroin 12 bags IV for the past 25 years on and off. He already eats both accidentally and intentionally in the past last time was a few months ago. He has been to detox twice and rehab 3 times. He also uses cocaine IV and smokes 1 pack. Per day cigarettes he denies other drugs and alcohol. He denies himanshu but has lots of depressive sxs and sometimes hears voices. He was referred to [facility] but he did not go. He was recently at [facility] but left. However, he wants to go back. Past psychiatric: Mostly substance related treatment Medical history: Hepatitis C and current fracture in arm Family psych history: Sister was depressed Consultations:: List each consultation separately and include: 1. Reason for request. 2. Findings. 3. Follow-up Summary of Hospital Course include:: 1. Description of specific treatment plan utilized for patients during their course of treatmen. 2. Summarize the time- course for resolution of acute symptoms and/or regressed behaviors. 3. Describe issues identified and worked on during hospitalization. 4. Describe medication utilized. 5. Describe medical problems identified and treated. 6. Reassessment of suicide risk - Diagnosis (1) Major depressive single episode severe with psychosis Current Visit: Yes Status: Acute (2) Opioid use disorder Current Visit: Yes Status: Acute - Final Diagnosis (DSM 5) Condition upon Discharge: FAIR DSM 5: Major depressive disorder, severe, single Opioid withdrawal Opioid use disorder, severe Cocaine use disorder, severe Disposition: HOME/ ROUTINE Follow-up Treatment Plan: Major depressive disorder, severe, single Opioid withdrawal Opioid use disorder, severe Cocaine use disorder, severe CBT ID for abstinence Taper with methadone Gabapentin for augmentation Remeron for depression Trazodone for insomnia Hydroxyzine for anxiety As needed medications All risks, benefits and alternatives of the meds discussed, and the pt agreed and understood. Attend groups and activities Supportive therapy and psychoeducation ID for abstinence Refer to rehab or IOP, and self-help groups Smoking cessation with ID Nicotine patch if needed Teach healthy lifestyle methods, i.e. diet, exercise, meditation Prescriptions/Medication Reconciliation: Doxycycline Hyclate 100 mg PO BID #10 capsule Gabapentin [Neurontin] 300 mg PO BID #60 cap Mirtazapine [Remeron] 30 mg PO HS #30 tab traZODone [Desyrel] 100 mg PO HS PRN #30 tab PRN Reason: Insomnia - Smoking Cessation Smoking Cessation Medication prescribed: No - Antipsychotic Medications Pt discharged on 2 or more routine antipsychotic medications: No
== END 2018-10-11 08:30 | disposition home or self-care (01) | DRG 430 ==
LOC: C.ER 00:37 → C.9E 03:31 → C.5E 04:35
PROVIDERS: ADMIT Psychiatry & Neurology Psychiatry; ATTEND Psychiatry & Neurology Psychiatry
PROC: GZHZZZZ Group Psychotherapy (ICD-10-PCS; principal; 2018-10-06)
PROC: HZ2ZZZZ Detoxification Services for Substance Abuse Treatment (ICD-10-PCS; 2018-10-06)
PROC: HZ52ZZZ Individual Psychotherapy for Substance Abuse Treatment, Cognitive-Behavioral (ICD-10-PCS; 2018-10-06)
PROC: HZ59ZZZ Individual Psychotherapy for Substance Abuse Treatment, Supportive (ICD-10-PCS; 2018-10-06)
PROC: HZ56ZZZ Individual Psychotherapy for Substance Abuse Treatment, Psychoeducation (ICD-10-PCS; 2018-10-06)
PROC: HZ42ZZZ Group Counseling for Substance Abuse Treatment, Cognitive-Behavioral (ICD-10-PCS; 2018-10-06)
PROC: HZ46ZZZ Group Counseling for Substance Abuse Treatment, Psychoeducation (ICD-10-PCS; 2018-10-06)
PROC: GZ58ZZZ Individual Psychotherapy, Cognitive-Behavioral (ICD-10-PCS; 2018-10-06)
PROC: GZ56ZZZ Individual Psychotherapy, Supportive (ICD-10-PCS; 2018-10-06)
DX: F32.3 Major depressive disorder, single episode, severe with psychotic features (principal); F11.23 Opioid dependence with withdrawal; F14.20 Cocaine dependence, uncomplicated; F17.210 Nicotine dependence, cigarettes, uncomplicated; F31.9 Bipolar disorder, unspecified; F41.9 Anxiety disorder, unspecified; G47.00 Insomnia, unspecified; R45.851 Suicidal ideations; Z86.19 Personal history of other infectious and parasitic diseases; S61.511A Laceration without foreign body of right wrist, initial encounter; B95.62 Methicillin resistant Staphylococcus aureus infection as the cause of diseases classified elsewhere